=== PATIENT | male | born 1940 | race Caucasian/White ===

== ENCOUNTER 2019-06-26 10:33 | Inpatient (IN) | payer OTHER ==
[~2019-06-26] VITALS: Ht 175.3 cm; Wt 67.8 kg
[2019-06-26 11:09] LABS: BASOPHILS # (AUTO) 0.1 (0.0-0.1); BASOPHILS % 0.6 % (0.0-1.0); EOSINOPHILS # (AUTO) 0.1 (0.0-0.4); EOSINOPHILS % 1.2 % (0.0-6.0); HEMATOCRIT 30.6 % (38.2-49.6); HEMOGLOBIN 9.5 g/dL (14.0-18.0); LYMPHOCYTES # (AUTO) 0.7 (1.0-3.2); LYMPHOCYTES % 6.1 % (18.0-39.1); MEAN CORPUSCULAR HEMOGLOBIN 26.3 pg (28-32); MEAN CORPUSCULAR VOLUME 84.8 fL (81-99); MONOCYTES # (AUTO) 0.8 (0.2-0.8); MONOCYTES % 6.9 % (4.4-11.3); NEUTROPHILS # (AUTO) 9.9 (2.1-6.9); NEUTROPHILS % 84.5 % (38.7-80.0); PLATELET COUNT 296 x10e3/uL (140-360); RED BLOOD COUNT 3.61 x10e6/uL (4.3-5.7); RED CELL DISTRIBUTION WIDTH 15.5 % (11.7-14.4)
[2019-06-26 11:29] LABS: INR 1.36; PROTHROMBIN TIME 17.7 seconds (11.9-14.5)
[2019-06-26 11:30] LABS: PARTIAL THROMBOPLASTIN TIME 44.5 seconds (23.8-35.5)
[2019-06-26 11:37] LABS: ALBUMIN 3.6 g/dL (3.5-5.0); ANION GAP 17.2 mmol/L (8-16); CALCIUM 10.4 mg/dL (8.4-10.2); CREATININE, SERUM 1.53 mg/dL (0.72-1.25); MAGNESIUM 1.6 MG/DL (1.3-2.1); POTASSIUM 5.2 mmol/L (3.5-5.1)
[2019-06-26] MEDS ORDERED: DEXTROSE 50% SYRINGE 50 ML IV STA (11:49)
[2019-06-26] MEDS ORDERED: DEXTROSE 50% SYRINGE 50 ML IV ONE (11:55)
[2019-06-26] MEDS ORDERED: DEXTROSE 5% 1,000 ML IV ONE (12:00)
--- NOTE | 2019-06-26 12:05 | Diagnostic Imaging Report ---
Examination: Single AP view of the chest. COMPARISON: None. INDICATION: Pain, trauma DISCUSSION: Lines/tubes: AICD. Sternotomy wires. Lungs: Enlargement of the central vasculature. No edema. Scattered calcified granuloma. Pleura: No pleural effusion or pneumothorax. Heart and mediastinum: Cardiomegaly. Bones and soft tissues: No acute bony abnormalities. IMPRESSION: 1. Cardiomegaly without decompensation Signed by: Dr. Obdulio Bowens M.D. on 06/26/2019 12:02 PM
--- NOTE | 2019-06-26 12:07 | Diagnostic Imaging Report ---
Exam: Right shoulder 2 views History: Pain Comparison: None. Findings: Possible nondisplaced fracture of the distal clavicle. Mild acromioclavicular arthrosis. Glenohumeral joint intact. No abnormal soft tissue calcification or soft tissue defect. Impression: Possible nondisplaced fracture of the distal clavicle Signed by: Dr. Obdulio Bowens M.D. on 06/26/2019 12:04 PM
--- NOTE | 2019-06-26 12:08 | Diagnostic Imaging Report ---
Exam: AP pelvis History: Pain Comparison: None. Findings: No fracture or malalignment. Degenerative arthrosis of the hip joints No abnormal soft tissue calcification or soft tissue defect. Impression: No displaced fracture Signed by: Dr. Obdulio Bowens M.D. on 06/26/2019 12:05 PM
--- NOTE | 2019-06-26 12:40 | Diagnostic Imaging Report ---
History: Fall, pain Comparison studies:None Technique: Axial images were obtained from the brain and cervical spine. Coronal and sagittal images reconstructed from the axial data. Intravenous contrast: None Dose modulation, iterative reconstruction, and/or weight based adjustment of the mA/kV was utilized to reduce the radiation dose to as low as reasonably achievable. Findings: Head CT: Scalp/skull: No abnormalities. Extra-axial spaces: No masses. No fluid collections. Brain sulci: Mildly prominent. Ventricles: Moderate compensatory dilatation more significant at the temporal horns which can be seen in Alzheimer's. No hydrocephalus. Parenchyma: Subtle hypodensities in the supratentorial white matter are small vessel ischemic changes. No masses, hemorrhage, acute or chronic cortical vascular insults. Sellar/suprasellar region: No abnormalities. Craniocervical junction: Patent foramen magnum. No Chiari one malformation. Incidental findings: Atherosclerotic calcifications in the carotid siphons and vertebral arteries . Cervical spine CT: Fractures: None. Soft tissues: No gross acute abnormalities. Atherosclerotic calcifications of the carotid bulbs. Atlantoaxial articulation: Degenerative changes without acute abnormality. Alignment: Normal lordosis. No scoliosis. Cervicomedullary junction: No abnormalities. Patent foramen magnum. Vertebrae: No infection or neoplasm. Degenerative changes: Degenerative foraminal narrowing, severe left at C5-6 and severe right at C6-7. Incidental findings: Partially visualized fracture of the right medial clavicle/sternoclavicular joint. Impression: Impression: 1. No acute abnormalities. 2. Mild generalized volume loss. 3. Mild supratentorial white matter small vessel ischemic 4. changes. Cervical spine CT: 1. No acute cervical spine abnormalities. 2. Cannot exclude ligament, spinal cord and or vascular abnormalities on the basis of this examination. 3. Partially visualized acute fracture of the right medial clavicle/sternoclavicular joint. Signed by: DR Salvador Forbes M.D. on 06/26/2019 12:38 PM
[2019-06-26] MEDS ORDERED: DEXTROSE 50% SYRINGE 50 ML IV PRN (12:45)
[2019-06-26] MEDS ORDERED: ONDANSETRON HCL INJ 2MG/ML 2ML 2 MG/ML VIAL IV PRN (12:45)
--- OUTSIDE RECORDS SUMMARY | 2019-06-26 13:38 | XMS REPORT ---
Author Author [facility] Address Unknown Phone Unavailable Care Team Providers Care Patient'S Librarian Name Role Phone Pardeep MIMS Unavailable Unavailable Problems This patient has no known problems. Allergies, Adverse Reactions, Alerts This patient has no known allergies or adverse reactions. Medications This patient has no known medications. Results Test Description Test Time Test Comments Text Results Atomic Results Result Comments CT CERVICAL SPINE WO 2019-06-26 12:16:00 [place] [address] Patient Name: JAYLON VALDIVIA MR #: [id number] : 1940 Age/Sex: 79/M Req #: [id number] Adm Physician: Ordered by: JAN MIMS MD Report #: [id number] Location: ER Room/Bed: Procedure: [id number] CT/CT CERVICAL SPINE WO Exam Date: 06/26/19 Exam Time: 1131 REPORT STATUS: Signed History: Fall, pain Comparison studies:None Tech nique: Axial images were obtained from the brain and cervical spine. Coronal and sagittal images reconstructed from the axial data. Intravenous contrast: None Dose modulation, iterative reconstruction, and/or weight based adjustment of the mA/kV was utilized to reduce the radiation dose to as low as reasonably achievable. Findings: Head CT: Scalp/skull: No abnormalities . Extra-axial spaces: No masses. No fluid collections. Brain sulci: Mildly prominent. Ventricles: Moderate compensatory dilatation more significant at the temporal horns which can be seen in Alzheimer's. No hydrocephalus. Parenchyma: Subtle hypodensities in the supratentorial white matter are small vessel ischemic changes. No masses, hemorrhage, acute or chronic cortical vascular insults. Sellar/suprasellar region: No abnormalities. Craniocervical junction: Patent foramen magnum. No Chiari one malformation. Incidental findings: Atherosclerotic calcifications in the carotid siphons and vertebral arteries . Cervical spine CT: Fractures: None. Soft tissues: No gross acute abnormalities. Atherosclerotic calcifications of the carotid bulbs. Atlantoaxial articulation: Degenerative changes without acute abnormality. Alignment: Normal lordosis. No scoliosis. Cervicomedullary junction: No abnormalities. Patent foramen magnum. Vertebrae: No infection or neoplasm. Degenerative changes: Degenerative foraminal narrowing, severe left at C5-6 and severe right at C6-7. Incidental findings: Partially visualized fracture of the right medial clavicle/sternoclavicular joint. Impression: Impression: 1. No acute abnormalities. 2. Mild generalized volume loss. 3. Mild supratentorial white matter small vessel ischemic 4. changes. Cervical spine CT: 1. No acute cervical spine abnormalities. 2. Cannot exclude ligament, spinal cord and or vascular abnormalities on the basis of this exam ination. 3. Partially visualized acute fracture of the right medial clavicle/sternoclavicular joint. Signed by: DR Salvador Forbes M.D. on 06/26/2019 12:38 PM Dictated By: SALVADOR GRISSOM MD 1238 Transcribed By: ELLIS on 06/26/19 1238 COPY TO: JAN MIMS MD CT BRAIN WO 2019-06-26 12:16:00 [place] [address] Patient Name: JAYLON VALDIVIA MR #: [id number] : 1940 Age/Sex: 79/M Req #: [id number] Adm Physician: Ordered by: JAN MIMS MD Report #: [id number] Location: ER Room/Bed: Procedure: [id number] CT/CT BRAIN WO Exam Date: 06/26/19 Exam Time: 1131 REPORT STATUS: Signed History: Fall, pain Comparison studies:None Technique: Axial images were obtained from the brain and cervical spine. Coronal and sagittal images reconstructed from the axial data. Intravenous contrast: None Dose modulation, iterative reconstruction, and/or weight based adjustment of the mA/kV was utilized to reduce the radiation dose to as low as reasonably achievable. Findings: Head CT: Scalp/skull: No abnormalities. Extra-axial spaces: No masses. No fluid collections. Brain sulci: Mildly prominent. Ventricles: Moderate compensatory dilatation more significant at the temporal horns which can be seen in Alzheimer's. No hydrocephalus. Parenchyma: Subtle hypodensities in the supratentorial white matter are small vessel ischemic changes. No masses, hemorrhage, acute or chronic cortical vascular insults. Sellar/suprasellar region: No abnormalities. Craniocervical junction: Patent foramen magnum. No Chiari one malformation. Incidental findings: Atherosclerotic calcifications in the carotid siphons and vertebral arteries . Cervical spine CT: Fractures: None. Soft tissues: No gross acute abnormalities. Atherosclerotic calcifications of the carotid bulbs. Atlantoaxial articulation: Degenerative changes without acute abnormality. Alignment: Normal lordosis. No scoliosis. Cervicomedullary junction: No abnormalities. Patent foramen magnum. Vertebrae: No infection or neoplasm. Degenerative changes: Degenerative foraminal narrowing, severe left at C5-6 and severe right at C6-7. Incidental findings: Partially visualized fracture of the right medial clavicle/sternoclavicular joint. Impression: Impression: 1. No acute abnormalities. 2. Mild generalized volume loss. 3. Mild supratentorial white matter small vessel ischemic 4. changes. Cervical spine CT: 1. No acute cervical spine abnormalities. 2. Cannot exclude ligament, spinal cord and or vascular abnormalities on the basis of this examination. 3. Partially visualized acute fracture of the right medial clavicle/sternoclavicular joint. Signed by: DR Salvador Forbes M.D. on 06/26/2019 12:38 PM Dictated By: SALVADOR GRISSOM MD 1238 Transcribed By: ELLIS on 06/26/19 1238 COPY TO: JAN MIMS MD CHEST SINGLE (PORTABLE) 2019-06-26 12:01:00 [place] [address] Patient Name: JAYLON VALDIVIA MR #: [id number] : 1940 Age/Sex: 79/M Req #: [id number] Adm Physician: Ordered by: JAN MIMS MD Report #: [id number] Location: ER Room/Bed: Procedure: [id number] DX/CHEST SINGLE (PORTABLE) Exam Date: 06/26/19 Exam Time: 1145 REPORT STATUS: Signed Examination: Single AP view of the chest. EDITH RISON: None. INDICATION: Pain, trauma DISCUSSION: Lines/tubes: AICD. Sternotomy wires. Lungs: Enlargement of the central vasculature. No edema. Scattered calcified granuloma. Pleura: No pleural effusion or pneumothorax. Heart and mediastinum: Cardiomegaly. Bones and soft tissues: No acute bony abnormalities. IMPRESSION: 1. Cardiomegaly without decompensation Signed by: Dr. Roseline De Paz M.D. on 06/26/2019 12:02 PM Dictated By: ROSELINE DE PAZ MD 1202 Transcribed By: ELLIS on 06/26/19 1202 COPY TO: JAN MIMS MD SHOULDER RIGHT COMPLETE 2019-06-26 12:00:00 [place] [address] Patient Name: JAYLON VALDIVIA MR #: [id number] : 1940 Age/Sex: 79/M Req #: [id number] Adm Physician: Ordered by: JAN MIMS MD Report #: [id number] Location: ER Room/Bed: Procedure: [id number] DX/SHOULDER RIGHT COMPLETE Exam Date: 06/26/19 Exam Time: 1145 REPORT STATUS: Signed Exam: Right shoulder 2 views History: Pain Comparison: None. Findings: Possible nondisplaced fracture of the distal clavicle. Mild acromioclavicular arthrosis. Glenohumeral joint intact. No abnormal soft tissue calcification or soft tissue defect. Impression: Possible nondisplaced fracture of the distal clavicle Signed by: Dr. Roseline De Paz M.D. on 06/26/2019 12:04 PM Dictated By: ROSELINE DE PAZ MD 120 Transcribed By: ELLIS on 06/26/19 1204 COPY TO: JAN MIMS MD PELVIS AP 1-2 VIEWS 2019-06-26 12:00:00 [place] [address] Patient Name: JAYLON VALDIVIA MR #: [id number] : 1940 Age/Sex: 79/M Req #: [id number] Adm Physician: Ordered by: JAN MIMS MD Report #: [id number] Location: Room/Bed: Procedure: [id number] DX/PELVIS AP 1-2 VIEWS Exam Date: 06/26/19 Exam Time: 1145 REPORT STATUS: Signed Exam: AP pelvis History: Pain Compariso n: None. Findings: No fracture or malalignment. Degenerative arthrosis of the hip joints No abnormal soft tissue calcification or soft tissue defect. Impression: No displaced fracture Signed by: Dr. Roseline De Paz M.D. on 06/26/2019 12:05 PM Dictated By: ROSELINE DE PAZ MD 1205 Transcribed By: ELLIS on 06/26/19 1205 COPY TO: JAN MIMS MD
--- NOTE | 2019-06-26 13:56 | NUR ---
blood sugar 161
[2019-06-26 14:05] LABS: CLARITY,URINE CLEAR (CLEAR); COLOR,URINE YELLOW (YELLOW); KETONES,URINE NEGATIVE (NEGATIVE); LEUKOCYTE ESTERASE ,URINE NEGATIVE (NEGATIVE); NITRITE,URINE NEGATIVE (NEGATIVE); PROTEIN,URINE DIPSTICK NEGATIVE (NEGATIVE); URINE UROBILINOGEN 0.2 mg/dL (0.2 - 1)
--- NOTE | 2019-06-26 14:05 | NUR ---
attempted to call report was told that nurse would call back
[2019-06-26 14:06] LABS: BILIRUBIN,URINE NEGATIVE (NEGATIVE)
[2019-06-26 14:26] LABS: BACTERIA,URINE FEW /HPF; EPITHELIAL CELLS,URINE FEW /LPF; RBC,URINE 0-5 /HPF (0-5); WBC,URINE (MAN) 0-5 /HPF (0-5)
--- NOTE | 2019-06-26 14:30 | NUR ---
shoulder sling applied to right shoulder
[2019-06-26] MEDS: OCTREOTIDE ACETATE 0.05 MG/ML AMP SQ SCH ×2 (14:43→18:07)
[2019-06-26 16:58] VITALS: BP 121/65
[2019-06-26 17:35] VITALS: BP 121/65
--- NOTE | 2019-06-26 19:00 | NUR ---
Received patient from day nurse, patient is alert and oriented x4. safety and fall precautions maintained as per hospital protocol: bed in lowest position and locked, needed items beside bed, call cano close to patient and patient instructed to use it to call nurses for any assistance needed, patient verbalized understanding. patient is currently stable will continue to monitor.
[2019-06-26 20:00] VITALS: BP 121/87
[2019-06-26] MEDS ORDERED: GLIMEPIRIDE2 MG PO (20:42)
[2019-06-26] MEDS ORDERED: METOPROLOL TART25 MG PO (20:42)
[2019-06-26] MEDS ORDERED: METFORMIN HCL500 MG PO (20:42)
[2019-06-26] MEDS ORDERED: LIPITOR20 MG (20:42)
[2019-06-26] MEDS ORDERED: LASIX20 MG PO (20:42)
[2019-06-26] MEDS ORDERED: ELIQUIS2.5 MG PO (20:42)
[2019-06-26] MEDS ORDERED: BENZONATATE100 MG PO (20:42)
[2019-06-26] MEDS ORDERED: LOSARTAN POTASS25 MG PO (20:42)
[2019-06-26] MEDS ORDERED: FLOMAX0.4 MG PO (20:42)
[2019-06-26] MEDS ORDERED: DIGOXIN125 MCG PO (20:42)
--- NOTE | 2019-06-26 20:46 | NUR ---
Patient at bedside, patient instructed to call for help at all times because of his risk for fall and hx of falls, urinal offered to patient at this time and he urinated. patient made informed again not to get up with help, fall precautions maintained.
[2019-06-26] MEDS ORDERED: FAMOTIDINE 20 MG/2 ML VIAL IV SCH (21:00)
[2019-06-26 21:38] VITALS: BP 121/65
[2019-06-27] VITALS (8 sets, daily range): BP systolic 109–127; BP diastolic 75–87
[2019-06-27] MEDS: OCTREOTIDE ACETATE 0.05 MG/ML AMP SQ SCH ×2 (03:08→08:44)
[2019-06-27 07:04] LABS: BASOPHILS # (AUTO) 0.1 (0.0-0.1); BASOPHILS % 0.7 % (0.0-1.0); EOSINOPHILS # (AUTO) 0.3 (0.0-0.4); EOSINOPHILS % 2.7 % (0.0-6.0); HEMATOCRIT 29.3 % (38.2-49.6); HEMOGLOBIN 9.2 g/dL (14.0-18.0); LYMPHOCYTES % 10.8 % (18.0-39.1); MEAN CORPUSCULAR HEMOGLOBIN 26.5 pg (28-32); MEAN CORPUSCULAR HGB CONC 31.4 g/dL (31-35); MEAN CORPUSCULAR VOLUME 84.4 fL (81-99); MONOCYTES # (AUTO) 0.9 (0.2-0.8); MONOCYTES % 10.1 % (4.4-11.3); NEUTROPHILS # (AUTO) 6.9 (2.1-6.9); NEUTROPHILS % 75.2 % (38.7-80.0); PLATELET COUNT 298 x10e3/uL (140-360); RED BLOOD COUNT 3.47 x10e6/uL (4.3-5.7); RED CELL DISTRIBUTION WIDTH 15.5 % (11.7-14.4)
[2019-06-27 07:27] LABS: ALBUMIN 3.2 g/dL (3.5-5.0); ANION GAP 15.9 mmol/L (8-16); CALCIUM 9.6 mg/dL (8.4-10.2); CHOL/HDL RATIO 3.9 (3.9-4.7); CREATININE, SERUM 1.55 mg/dL (0.72-1.25); POTASSIUM 4.9 mmol/L (3.5-5.1)
[2019-06-27 08:05] LABS: CREATINE KINASE MB 0.8 ng/mL (0-5.0)
[2019-06-27] MEDS ORDERED: BENZONATATE 100 MG CAP PO PRN (08:15)
[2019-06-27] MEDS ORDERED: DEXTROSE 50% SYRINGE 50 ML IV PRN (08:30)
[2019-06-27] MEDS: METOPROLOL TARTRATE 25 MG TAB PO SCH ×2 (08:37→17:36)
[2019-06-27] MEDS: TAMSULOSIN HCL 0.4 MG CAP PO SCH (08:37)
[2019-06-27] MEDS: APIXAB 2.5 MG TABLET PO SCH (08:37)
--- NOTE | 2019-06-27 08:55 | NUR ---
Met with patient and his , Francine ([phone]) and discussed dc plan. They agree with home health SN and PT, and have never had HH before. Choice letter given, and they chose [facility]. Copy to pt and original placed in chart. Pt lives in [place], so info sent to [place] office. Explained to to contact [facility] tomorrow afternoon, if she has not yet heard from them. Verified information of demographic sheet, and pt does plan to return to him upon upon discharge. Pt is discharging home today. [facility] ([place]) OFFICE: [phone] FAX: [phone]
[2019-06-27] MEDS ORDERED: ASPIRIN 81 MG ENTERIC COATED PO SCH (09:00)
--- NOTE | 2019-06-27 10:38 | History and Physical ---
CHIEF COMPLAINT: Low blood sugar secondary to taking sulfonylurea and status post syncopal episode with fall, right clavicular fractures. HISTORY OF PRESENT ILLNESS: The patient is an 79-year-old male with extensive coronary artery disease. The patient has previous myocardial infarction back in 1981 where his left ventricle infarction with necrosis, status post left ventricular resection per patient and then subsequently since then the patient has congestive heart failure, where he subsequently underwent ICD placement. The patient also has atrial fibrillation. He is on anticoagulant therapy. Currently, he is on digoxin 0.125 mg daily and on admission the patient digoxin level was elevated at 2.04. He also has chronic kidney disease. He was taking Amaryl 2 mg twice a day. Apparently, he was supposed to take it once a day. The patient came in with blood sugar in the 50. The patient did receive multiple D50 infusion and also IV fluids. The patient is otherwise stable now. On his fall, the patient suffered clavicle fractures. The clavicle fracture is noted on the right medial clavicle sternal clavicular joint area. The patient is still able to use his right hand. He is having decreased range of motion of the right shoulder and he is using a sling at this time. The patient is otherwise stable. He is coherent. He did not have any deficit. PAST MEDICAL HISTORY: Coronary artery disease with previous left ventricular resection. Atrial fibrillation on anticoagulant therapy. Chronic kidney disease. Diabetes type 2. Hypertension, dyslipidemia, BPH. PAST SURGICAL HISTORY: Left ventricular resection. Coronary stent. ICD to the left chest. SOCIAL HISTORY: The patient does not smoke or use alcohol. No recreational drug use. ALLERGIES: PENICILLIN. HOME MEDICATIONS: The patient is on Eliquis, Lipitor, Tessalon Perles, digoxin, furosemide, Amaryl, losartan, metformin, metoprolol tartrate and Flomax. PHYSICAL EXAMINATION: VITAL SIGNS: Temperature is 98, blood pressure 127/80, pulse rate 75, respirations 18. GENERAL: The patient is awake, alert, not in any distress. He is oriented. HEENT: Normocephalic and atraumatic. Anicteric. NECK: Supple grossly. PULMONARY: Diminished breath sounds. CARDIOVASCULAR: Positive systolic murmur. Positive ICD left chest. ABDOMEN: Soft. EXTREMITIES: Right shoulder sling, right arm sling. NEUROLOGIC: No focal deficit. LABORATORY DATA: Sodium is 136, potassium 5.2, chloride 101, bicarb 23, BUN 36, creatinine 1.3, glucose 50, improved now. WBC is 9.2, hemoglobin 9, hematocrit 29.3, platelets 298. INR is 1.36. IMPRESSION: 1. Hypoglycemic episodes secondary to sulfonylurea and Amaryl that the patient was taking. 2. Dehydration with chronic kidney disease. 3. Digoxin toxicity due to the above 2.04. 4. Baseline diabetes type 2 on metformin and Amaryl. 5. Coronary artery disease with stents and previous left ventricular resection now with left ICD due to congestive heart failure, which is compensated. PLAN: Insulin sliding scale coverage. We will discontinue metformin and Amaryl for now. Hold off the digoxin. Repeat lab work in the morning. Check the potassium level. Check the digoxin level as well. We will monitor the patient closely. Right arm sling. May need home health. We will continue to manage this patient for now. The patient does see his supervisor money room on a regular basis; therefore, I will not do any other workup. The patient is otherwise stable, remained on observation, should be able to go home tomorrow with some discharge planning. MD YUKI Soliz/ANN /[id number]
[2019-06-27] MEDS: INSULIN LISPRO 100 UNIT/1 ML 3ML VIAL SQ SCH ×3 (12:18→21:00)
[2019-06-27 14:53] LABS: CREATINE KINASE MB 0.7 ng/mL (0-5.0)
[2019-06-27] MEDS ORDERED: LOPERAMIDE2 MG PO (15:40)
[2019-06-27] MEDS ORDERED: BENZONATATE100 MG PO (15:40)
[2019-06-27] MEDS ORDERED: TYLENOL WITH C1 EACH PO (15:40)
[2019-06-27] MEDS ORDERED: RANITIDINE HCL150 M1 (15:40)
[2019-06-27] MEDS ORDERED: FLUOCINONIDE15 GM (15:40)
[2019-06-27] MEDS ORDERED: SPIRONOLACTONE25 MG PO (15:40)
[2019-06-27] MEDS ORDERED: MELATONIN3 MG PO (15:40)
[2019-06-27] MEDS ORDERED: LORATADINE10 MG PO (15:40)
[2019-06-27] MEDS ORDERED: FINASTERIDE5 MG PO (15:40)
--- NOTE | 2019-06-27 19:00 | NUR ---
Received patient from day nurse, patient is alert and oriented x3. patient is on room air. safety and fall precautions mainatained as per hospital protocol: bed in lowest position and locked, needed items beside bed and call cano close to patient, as per day nurse, patient alarm has being going off because he gets out of bed without calling for help, patient educated to call for help, verbalized understanding.
--- NOTE | 2019-06-27 19:10 | NUR ---
Received patient from day nurse, patient is stable at this time. patient is alert and oriented x 2. safety and fall precautions maintained as per hospital protocol: bed in lowest position and locked, needed items beside bed and patient instructed to call at all times for help.
--- NOTE | 2019-06-27 20:55 | NUR ---
Patient got out of bed, did not use the call light, patient states I want to walk around, patient educated on the possibility of fall. patient states, I do this at home, coating supervisor made aware and Dr. Plasencia made aware, stated patient can have melatonin and also place patient on 1:1, security field supervisor made aware and awaiting a sitter.
[2019-06-27] MEDS: ATORVASTATIN 40 MG TAB PO SCH (21:48)
[2019-06-27] MEDS ORDERED: TEMAZEPAM 7.5 MG CAP PO PRN (22:30)
--- NOTE | 2019-06-27 23:15 | NUR ---
Patient states wants to leave home, called and spoke to patient, as per , she wants patient to be in the hospital to receive the care he needs. RN is at bed side now.
[2019-06-27] MEDS: FAMOTIDINE 20 MG TAB PO SCH (23:44)
[2019-06-27] MEDS: BENZONATATE 100 MG CAP PO SCH (23:45)
[2019-06-28] VITALS (7 sets, daily range): BP systolic 105–127; BP diastolic 67–83
--- NOTE | 2019-06-28 05:31 | NUR ---
Consult called to Dr. Ortiz office, spoke to [place].
[2019-06-28 06:30] LABS: BASOPHILS # (AUTO) 0.1 (0.0-0.1); BASOPHILS % 0.9 % (0.0-1.0); EOSINOPHILS # (AUTO) 0.3 (0.0-0.4); EOSINOPHILS % 2.5 % (0.0-6.0); HEMATOCRIT 28.3 % (38.2-49.6); HEMOGLOBIN 8.9 g/dL (14.0-18.0); LYMPHOCYTES # (AUTO) 2.3 (1.0-3.2); LYMPHOCYTES % 19.4 % (18.0-39.1); MEAN CORPUSCULAR HEMOGLOBIN 26.4 pg (28-32); MEAN CORPUSCULAR HGB CONC 31.4 g/dL (31-35); MONOCYTES # (AUTO) 1.3 (0.2-0.8); MONOCYTES % 11.2 % (4.4-11.3); NEUTROPHILS # (AUTO) 7.7 (2.1-6.9); NEUTROPHILS % 65.2 % (38.7-80.0); PLATELET COUNT 303 x10e3/uL (140-360); RED BLOOD COUNT 3.37 x10e6/uL (4.3-5.7); RED CELL DISTRIBUTION WIDTH 15.2 % (11.7-14.4)
[2019-06-28 06:45] LABS: ANION GAP 13.7 mmol/L (8-16); CALCIUM 9.2 mg/dL (8.4-10.2); CREATININE, SERUM 1.3 mg/dL (0.72-1.25); POTASSIUM 4.7 mmol/L (3.5-5.1)
[2019-06-28 06:52] LABS: DIGOXIN 0.84 ng/mL (0.8-2.0)
[2019-06-28 07:00] LABS: % IRON SATURATION 7 % (15-50); IRON 20 ug/dL (65-175); TOTAL IRON BINDING CAPACITY 305 ug/dL (261-478); TRANSFERRIN 218 mg/dL (174-364)
--- NOTE | 2019-06-28 07:00 | NUR ---
bedside shift report received, pt in stable condition. l ac 20g no ss of infiltration noted, deneis pain at this time, updated on poc vocied understanding, sitter at bedside, bedalarm in place, call light in reach will continue to monitor
--- NOTE | 2019-06-28 07:24 | NUR ---
Patient endorsed to next shift for continuity of care.
[2019-06-28] MEDS: INSULIN LISPRO 100 UNIT/1 ML 3ML VIAL SQ SCH ×4 (07:30→22:38)
[2019-06-28] MEDS: FAMOTIDINE 20 MG TAB PO SCH ×2 (08:39→17:00)
[2019-06-28] MEDS: TAMSULOSIN HCL 0.4 MG CAP PO SCH (08:53)
[2019-06-28] MEDS: LORATADINE 10 MG TAB PO SCH (08:53)
[2019-06-28] MEDS: APIXAB 2.5 MG TABLET PO SCH (08:53)
[2019-06-28] MEDS: METOPROLOL TARTRATE 25 MG TAB PO SCH ×2 (08:54→17:20)
[2019-06-28] MEDS: FINASTERIDE 5 MG TAB PO SCH (08:55)
[2019-06-28] MEDS: BENZONATATE 100 MG CAP PO SCH ×2 (08:56→17:20)
[2019-06-28] MEDS ORDERED: MAGNESIUM HYDROXIDE 30 ML UDC PO PRN (09:00)
[2019-06-28] MEDS ORDERED: BISACODYL 5 MG TAB EC PO PRN (09:00)
[2019-06-28] MEDS ORDERED: BISACODYL 10 MG SUPP PR PRN (09:00)
[2019-06-28] MEDS ORDERED: ONDANSETRON HCL 4 MG ORAL DISINTEGRATING TAB PO PRN (09:30)
[2019-06-28] MEDS: IRON-VITAMIN-MINERAL CAPSULE PO SCH ×2 (10:10→17:57)
[2019-06-28] MEDS: SENNOSIDES 8.6 MG TAB PO SCH ×2 (10:10→17:20)
--- NOTE | 2019-06-28 10:15 | NUR ---
CHIDI WITH [facility] CALLED AND THEY WILL NOT BE ABLE TO ACCEPT PT, WILL NEED TO SET UP ALTERNATE HOME HEALTH, NOTIFIED CM.
--- NOTE | 2019-06-28 12:46 | NUR ---
[facility], FILED CHOICE IN CHART, FAXED CLINICALS TO [phone], COMPLETED RTF AND PASRR FILED I CHART AND PACKET FOR COMPLETION OF TRANSFER.
[2019-06-28] MEDS ORDERED: TEMAZEPAM 7.5 MG CAP PO PRN (13:30)
[2019-06-28] MEDS ORDERED: RISPERIDONE 0.5 MG TAB PO PRN (13:30)
[2019-06-28] MEDS ORDERED: HALOPERIDOL LACTATE 5 MG/ML VIAL IM PRN (13:30)
--- NOTE | 2019-06-28 16:11 | NUR ---
spoke with dr barajas re: EF of less than 20% no new orders at this time.
--- NOTE | 2019-06-28 16:31 | NUR ---
[facility] IS NOT IN NETWORK, SPOKE WITH FAMILY AND GAVE FULL LIST OF IN NETWORK FACILITIES CHOICE CHANGED AND INITIALED FOR [facility] OF [facility], FAXED CLINCALS TO FACILITY. UPDATED PASRR AND RTF
[2019-06-28] MEDS: ACETAMINOPHEN/CODEINE 300MG - 30MG TAB PO PRN (17:30)
--- NOTE | 2019-06-28 19:20 | NUR ---
RECEIVED BEDSIDE SHIFT REPORT FROM PREVIOUS NURSE. CALL LIGHT WITHIN REACH. PATIENT IN BED.
--- NOTE | 2019-06-28 20:05 | Consultation ---
DATE OF CONSULTATION: 06/28/2019 Psychiatric Consultation The patient evaluated and events noted. REASON FOR CONSULTATION: To evaluate the patient's psychosis and confusion. HISTORY OF PRESENT ILLNESS: The patient is an 79-year-old male, admitted to the hospital for hyperglycemia. Psych consult is for confusion, psychosis. As per medical record, the patient has history of coronary artery disease, atrial fibrillation, chronic kidney disease, diabetes, hypertension, dyslipidemia, and BPH. Upon evaluation today, the patient is found to be sitting in his room. His is in the room as well as the daughter. The patient is oriented to self, place, and situation. He claims to hospital due to a fall and broke his clavicle. The patient denies any anxiety or depression, but wants to go home. He denies any hopelessness or helplessness. He denies any suicidal or homicidal ideation. He denies any hallucination. However, the patient reports he has not been eating or sleeping well. No paranoia elicited at this time. Collaborative report from the , who admits that patient has not been eating well. He has lost about 40 pounds the end of last beginning of this year. PAST PSYCHIATRIC HISTORY: The patient denies past psychiatric history. He denies past suicide attempts. He denies any drug use, but claims he drinks alcohol very little. FAMILY HISTORY: Denies. SOCIAL HISTORY: The patient states he lives with his . MENTAL STATUS EXAM: The patient is elderly male. He has been oriented to situation. His mood is fair. Denies suicidal or homicidal ideation. Denies any hallucination. Thought process is concrete. No delusion elicited. Insight and judgment are fair. Memory appears to be grossly intact. CURRENT MEDICATION: 1. Insulin. 2. Senokot. 3. Hemocyte Plus. 4. Benzonatate. 5. Proscar. 6. Lopressor. 7. Flomax. 8. Eliquis. 9. Pepcid. 10. Restoril 15 mg p.o. at bedtime p.r.n. 11. Atorvastatin. 12. Loratadine. 13. Zofran. 14. Digoxin. 15. Bisacodyl. 16. Magnesium hydroxide. 17. Melatonin 5 mg p.o. at bedtime. 18. Tylenol No. 3. 19. Dextrose. CURRENT LABS: WBC 11.76, RBC 3.37, hemoglobin 8.9, hematocrit 28.3, and platelets 303. Sodium 133, potassium 4.7, chloride 103, CO2 of 21, BUN 36, creatinine 1.3, AST 16, and ALT 18. ASSESSMENT: 1. Adjustment disorder with mixed mood. 2. Rule out psychosis. PLAN: 1. Add Remeron 7.5 mg p.o. at bedtime. 2. Add Risperdal 0.5 mg p.o. at bedtime p.r.n. 3. Add Haldol 1 mg IM q.6 hours p.r.n. 4. Continue with temazepam p.r.n. at bedtime. 5. Continue melatonin. 6. Monitor for mood, sodium level, and psychosis. Thank you for this consultation. We will follow the patient with you during his hospitalization. Dictated by Baylee Shaikh PA-C Shikha Rasmussen MD QTV/MODL /[id number]
[2019-06-28] MEDS: MIRTAZAPINE 15 MG TAB PO SCH (22:42)
[2019-06-28] MEDS: ATORVASTATIN 40 MG TAB PO SCH (22:42)
[2019-06-28] MEDS: MELATONIN 5 MG TABLET PO SCH (22:42)
[2019-06-29] VITALS (8 sets, daily range): BP systolic 106–126; BP diastolic 73–81
[2019-06-29] MEDS: ACETAMINOPHEN/CODEINE 300MG - 30MG TAB PO PRN (03:03)
[2019-06-29 06:05] LABS: BASOPHILS # (AUTO) 0.1 (0.0-0.1); BASOPHILS % 0.8 % (0.0-1.0); EOSINOPHILS # (AUTO) 0.1 (0.0-0.4); HEMATOCRIT 27.8 % (38.2-49.6); HEMOGLOBIN 9.1 g/dL (14.0-18.0); LYMPHOCYTES # (AUTO) 1.9 (1.0-3.2); LYMPHOCYTES % 14.1 % (18.0-39.1); MEAN CORPUSCULAR HEMOGLOBIN 26.9 pg (28-32); MEAN CORPUSCULAR HGB CONC 32.7 g/dL (31-35); MEAN CORPUSCULAR VOLUME 82.2 fL (81-99); MONOCYTES # (AUTO) 1.4 (0.2-0.8); MONOCYTES % 10.7 % (4.4-11.3); NEUTROPHILS # (AUTO) 9.6 (2.1-6.9); NEUTROPHILS % 72.6 % (38.7-80.0); PLATELET COUNT 302 x10e3/uL (140-360); RED BLOOD COUNT 3.38 x10e6/uL (4.3-5.7); RED CELL DISTRIBUTION WIDTH 15.2 % (11.7-14.4)
[2019-06-29 06:28] LABS: ANION GAP 16.4 mmol/L (8-16); CALCIUM 9.6 mg/dL (8.4-10.2); CREATININE, SERUM 1.42 mg/dL (0.72-1.25); POTASSIUM 4.4 mmol/L (3.5-5.1)
--- NOTE | 2019-06-29 07:00 | NUR ---
BEDSIDE SHIFT REPORT RECEIVED FROM ARAVIND VILLATORO. PT DENIES NEEDS AT THIS TIME.
--- NOTE | 2019-06-29 07:23 | NUR ---
GAVE BEDSIDE SHIFT REPORT TO ONCOMING NURSE. CALL LIGHT WITHIN REACH. PATIENT IN BED. PATIENT IS A&OX2.
[2019-06-29] MEDS: INSULIN LISPRO 100 UNIT/1 ML 3ML VIAL SQ SCH ×4 (07:30→21:00)
[2019-06-29] MEDS: FINASTERIDE 5 MG TAB PO SCH (08:57)
[2019-06-29] MEDS: SENNOSIDES 8.6 MG TAB PO SCH ×2 (08:57→17:21)
[2019-06-29] MEDS: METOPROLOL TARTRATE 25 MG TAB PO SCH ×2 (08:57→17:21)
[2019-06-29] MEDS: IRON-VITAMIN-MINERAL CAPSULE PO SCH ×2 (08:57→17:21)
[2019-06-29] MEDS: DIGOXIN 0.125 MG TAB PO SCH (08:57)
[2019-06-29] MEDS: APIXAB 2.5 MG TABLET PO SCH (08:57)
[2019-06-29] MEDS: TAMSULOSIN HCL 0.4 MG CAP PO SCH (08:57)
[2019-06-29] MEDS: FAMOTIDINE 20 MG TAB PO SCH ×2 (08:57→17:20)
[2019-06-29] MEDS: LORATADINE 10 MG TAB PO SCH (08:57)
[2019-06-29] MEDS: BENZONATATE 100 MG CAP PO SCH ×2 (08:58→17:21)
[2019-06-29] MEDS ORDERED: DIATRIZOATE MEGL/DIATRIZOA SOD 30 ML BTL PO ONE (10:16)
--- NOTE | 2019-06-29 12:24 | Consultation ---
DATE OF CONSULTATION: 06/28/2019 Cardiology Consultation Note Thank you so much for asking me to see this nice man in consultation. Mr. Mariano is a very complex and very elderly, 79-year-old man, who presented to the [facility] on the with a complaint of falling down at home. History of Present Illness is obtained from the patient and from his at bedside, who suggests that he gotten up at night and fell down and fractured his shoulder. HISTORY OF PRESENT ILLNESS: The patient takes oral hypoglycemics. He tells me he has never been recommended to eat a bedtime snack and presenting fingerstick glucoses are low. PAST MEDICAL HISTORY: Long and complex. 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 He did not do coronary artery bypasses. More recently, the patient has had coronary stenting. He has lived in the [place] area since 2000. He has chronic atrial fibrillation and mild renal insufficiency. CURRENT MEDICATIONS: Include apixaban 2.5 mg, atorvastatin 80 mg daily, Haldol 1 mg, tamsulosin 0.4 mg daily, melatonin at bedtime, Restoril at bedtime, metoprolol 25 mg twice a day, digoxin 0.125 mg every other day, and Amaryl 2 mg twice a day. PAST SURGICAL HISTORY: Includes defibrillator placement and left ventricular aneurysmectomy as above and coronary stenting. PHYSICAL EXAMINATION: GENERAL: At this time shows an elderly white man, who is awake. Right arm in sling. Multiple purpura on both arms. HEAD, EYES, EARS, NOSE, AND THROAT: Shows amblyopia. NECK: No jugular venous distention. THORAX: There is healed midline sternotomy and left subclavian defibrillator site. Heart sounds S1 and S2 are equal. There is 1/6 systolic murmur. PULMONARY: Lung law are clear. ABDOMEN: Protuberant. Normal bowel sounds. EXTREMITIES: No cyanosis, clubbing, or edema. LABORATORY DATA: Presenting laboratory showed a fingerstick blood sugar of 50. His digoxin level initially 2.0. BNP 207. Chest x-ray showing a defibrillator and sternotomy wires. Additionally, echocardiogram here shows ejection fraction less than 20%. No pericardial effusion. Calculated right ventricular systolic pressure is 52 mmHg. Interrogation of defibrillator shows appropriate device function, chronic atrial fibrillation, no ventricular arrhythmias, and estimated battery life of 15 months. ASSESSMENT: 1. Hypoglycemia due to oral hypoglycemics. 2. Clavicular fracture. 3. Type 2 adult onset diabetes. 4. Defibrillator function intact. 5. Previous ventricular aneurysmectomy. 6. Chronic atrial fibrillation. PLAN: We will discuss anticoagulation with the patient and family, and continue his home medications. Prognosis is guarded. Thank you for asking me to see him in consultation. MD STEPHANY Suggs/ANN /[id number]
[2019-06-29] MEDS ORDERED: HALOPERIDOL LACTATE 5 MG/ML VIAL IM PRN (12:45)
--- NOTE | 2019-06-29 14:00 | Progress Note ---
DATE: 06/29/2019 Psychiatric Progress Note SUBJECTIVE: The patient evaluated and events noted. The patient is in the room with the . He is alert, awake, and oriented to place and situation. He appears to be eating, but still having poor appetite. He is not combative or agitated; however, he did receive p.r.n. Risperdal and Haldol last night. He received Remeron last night and no side effects seen. ASSESSMENT: 1. Adjustment disorder with mixed mood. 2. Rule out psychosis. PLAN: 1. To continue Remeron 7.5 mg p.o. at bedtime. 2. Continue Risperdal 0.5 mg p.o. q.6 hours as needed. 3. Reduce Haldol 1 mg IM q.6 hours p.r.n. to 0.5 mg IM q.6 hours p.r.n. 4. Discontinue temazepam p.r.n. 5. Continue melatonin. 6. Monitor for mood. 7. Supportive therapy. Dictated by Baylee Shaikh PA-C Shikha Rasmussen MD QTV/MODL /[id number]
--- NOTE | 2019-06-29 14:10 | Diagnostic Imaging Report ---
CT of the chest, abdomen, and pelvis History: Pain, shortness of breath Comparison: None available. Technique: Multidetector CT scanning of the abdomen and pelvis was performed from the level of the thoracic inlet to the inferior pubic ramus, without IV contrast. DOSE REDUCTION: The examination was performed according to departmental dose-optimization program which includes automated exposure control, adjustment of the mA and/or kV according to patient size and/or use of iterative reconstruction technique. DISCUSSION: CHEST FINDINGS: The visualized portions of the thyroid gland are within normal limits. There is no axillary, mediastinal, or hilar lymphadenopathy. The heart is enlarged. A left subclavian AICD is in place. Nonspecific pericardial calcifications are present. Three-vessel atherosclerotic coronary calcifications are present. The thoracic aorta is of normal course and caliber. The trachea and central airways are clear. A 6 mm pulmonary nodule is identified in the left upper lobe on series 4 axial image 32. A calcified granuloma is identified in the right lower lobe. There are scattered areas of atelectasis versus scarring. Small bilateral pleural effusions are present. There is no pneumothorax. There is a nondisplaced fracture of the distal right clavicle. No other acute thoracic osseous amount is identified. ABDOMEN/PELVIS FINDINGS: No focal hepatic lesions are identified. The gallbladder is present and contains small calcified gallstones. There is no gallbladder distention or pericholecystic fluid. No intrahepatic or extrahepatic dilatation. The spleen is within normal limits. The bilateral adrenal glands are unremarkable. The pancreas is normal in attenuation. There is no pancreatic ductal dilatation or peripancreatic inflammatory stranding. The kidneys are normal in size. There is no hydroureteronephrosis bilaterally. No renal calculi are identified. The stomach, small, and large bowel are nondistended. There is no evidence of obstruction. No bowel wall thickening is appreciated. Scattered colonic diverticula are present without evidence of acute diverticulitis. There is no free intraperitoneal air or ascites. A fusiform infrarenal abdominal aortic aneurysm is present which measures 4.2 cm in maximum diameter. The urinary bladder is within normal limits. There are multilevel degenerative changes of the thoracolumbar spine. IMPRESSION: 1. Small bilateral pleural effusions. 2. Cardiomegaly. 3. Acute nondisplaced right distal clavicle fracture. 4. 6 mm left upper lobe pulmonary nodule. Follow-up CT in 6-12 months and then at 18-24 months is recommended. 5. Fusiform 4.2 cm diameter infrarenal abdominal aortic aneurysm. Recommend vascular consultation and follow-up every 12 months. 6. Cholelithiasis without evidence of cholecystitis. 7. Colonic diverticulosis without evidence of acute diverticulitis. Signed by: Amilcar Mcgill MD on 06/29/2019 2:08 PM
--- NOTE | 2019-06-29 19:45 | NUR ---
pt recieved. pt assessed. no ss of distress noted. pt attempting to get out bed. reoriented pt and educated pt on safety. pt verbalized understanding. tele in place. right shoulder sling in place. will cont to follow poc. call cano within reach.
[2019-06-29] MEDS: MELATONIN 5 MG TABLET PO SCH (19:59)
[2019-06-29] MEDS: ATORVASTATIN 40 MG TAB PO SCH (19:59)
[2019-06-29] MEDS: MIRTAZAPINE 15 MG TAB PO SCH (19:59)
[2019-06-30] VITALS (8 sets, daily range): BP systolic 105–133; BP diastolic 57–85
--- NOTE | 2019-06-30 | NUR ---
diaper saturated. pt cleaned and repositioned. no distress noted. call cano within reach.
--- NOTE | 2019-06-30 06:23 | NUR ---
bed bath given. linen changed. no distress noted. call cano within reach.
[2019-06-30] MEDS: INSULIN LISPRO 100 UNIT/1 ML 3ML VIAL SQ SCH ×4 (07:30→20:41)
[2019-06-30] MEDS: FAMOTIDINE 20 MG TAB PO SCH ×2 (07:30→16:46)
--- NOTE | 2019-06-30 07:30 | NUR ---
Received patient, alert and responsive, in bed, no distress, sling in place to right arm, will monitor.
[2019-06-30] MEDS: FINASTERIDE 5 MG TAB PO SCH (09:00)
[2019-06-30] MEDS: LORATADINE 10 MG TAB PO SCH (09:00)
[2019-06-30] MEDS: TAMSULOSIN HCL 0.4 MG CAP PO SCH (09:00)
[2019-06-30] MEDS: APIXAB 2.5 MG TABLET PO SCH (09:00)
[2019-06-30] MEDS: BENZONATATE 100 MG CAP PO SCH ×2 (09:00→16:46)
[2019-06-30] MEDS: METOPROLOL TARTRATE 25 MG TAB PO SCH ×2 (09:00→16:46)
[2019-06-30] MEDS: SENNOSIDES 8.6 MG TAB PO SCH ×2 (09:00→16:46)
[2019-06-30] MEDS: IRON-VITAMIN-MINERAL CAPSULE PO SCH ×2 (09:00→16:46)
--- NOTE | 2019-06-30 10:17 | NUR ---
Rounds by Dr. Ortiz, started patient on Lasix 20mg and states from his standpoint, patient is ok to discharge. SNF pending at this point.
[2019-06-30] MEDS: FUROSEMIDE 20 MG TAB PO SCH (10:28)
--- NOTE | 2019-06-30 16:31 | NUR ---
CALLED FACILITY TO GET UPDATE WAS TOLD STILL PENDING. NARINDER CALLED OLIVIA WITH [facility] AND GOT VOICE MAIL.
[2019-06-30] MEDS: ACETAMINOPHEN/CODEINE 300MG - 30MG TAB PO PRN (18:32)
--- NOTE | 2019-06-30 19:11 | NUR ---
Report given to on coming nurse, rounds completed, safety in place,
[2019-06-30] MEDS: MELATONIN 5 MG TABLET PO SCH (20:40)
[2019-06-30] MEDS: MIRTAZAPINE 15 MG TAB PO SCH (20:40)
[2019-06-30] MEDS: ATORVASTATIN 40 MG TAB PO SCH (20:40)
--- NOTE | 2019-07-01 00:12 | Progress Note ---
DATE: 06/30/2019 Psychiatric Progress Note SUBJECTIVE: The patient evaluated and events noted. The patient is in the room. He is doing better. He is eating better. He is calm. He is not getting any p.r.n. medication. He is oriented to situation. He denies any depression. He denies . ASSESSMENT: 1. Adjustment disorder with mixed mood. 2. Rule out psychosis. PLAN: 1. Continue Remeron 7.5 mg p.o. at bedtime. 2. Continue with Risperdal p.r.n. p.o. 3. Continue Haldol p.r.n. IM. 4. Monitor for agitation. Dictated by Baylee Shaikh PA-C Shikha Rasmussen MD QTV/ANN /[id number]
[2019-07-01 01:14] VITALS: BP 113/75
[2019-07-01 06:37] VITALS: BP 121/79
[2019-07-01 06:44] LABS: BASOPHILS # (AUTO) 0.1 (0.0-0.1); BASOPHILS % 0.8 % (0.0-1.0); EOSINOPHILS # (AUTO) 0.9 (0.0-0.4); EOSINOPHILS % 7.2 % (0.0-6.0); HEMATOCRIT 28.3 % (38.2-49.6); HEMOGLOBIN 9.1 g/dL (14.0-18.0); LYMPHOCYTES % 16.6 % (18.0-39.1); MEAN CORPUSCULAR HEMOGLOBIN 26.6 pg (28-32); MEAN CORPUSCULAR HGB CONC 32.2 g/dL (31-35); MEAN CORPUSCULAR VOLUME 82.7 fL (81-99); MONOCYTES # (AUTO) 1.2 (0.2-0.8); MONOCYTES % 10.3 % (4.4-11.3); NEUTROPHILS # (AUTO) 7.7 (2.1-6.9); PLATELET COUNT 303 x10e3/uL (140-360); RED BLOOD COUNT 3.42 x10e6/uL (4.3-5.7); RED CELL DISTRIBUTION WIDTH 15.5 % (11.7-14.4)
[2019-07-01 07:02] LABS: ANION GAP 14.9 mmol/L (8-16); CALCIUM 9.2 mg/dL (8.4-10.2); CREATININE, SERUM 1.29 mg/dL (0.72-1.25); POTASSIUM 3.9 mmol/L (3.5-5.1)
[2019-07-01] MEDS: INSULIN LISPRO 100 UNIT/1 ML 3ML VIAL SQ SCH ×4 (07:30→18:15)
[2019-07-01 08:02] VITALS: BP 119/78
[2019-07-01 08:26] VITALS: BP 121/79
--- NOTE | 2019-07-01 08:26 | NUR ---
CALLED [facility] FOR UPDATE ON SNF REFERRAL
--- NOTE | 2019-07-01 08:42 | NUR ---
GOT OLIVIA FROM [facility] AND DELORES FROM [facility] ON PHONE AT SAME TIME, TOLD THAT INSURANCE HAS NOT RECEIVED ANYTHING AND THAT MILO FROM [facility] [employer] HAS CONFIRMATION, GOT FAX NUMBER TO OLIVIA SO SHE CAN PROCESS. HOPE THIS WILL MOVE THIS ALONG
[2019-07-01] MEDS: FAMOTIDINE 20 MG TAB PO SCH ×2 (09:17→18:13)
[2019-07-01] MEDS: APIXAB 2.5 MG TABLET PO SCH (09:17)
[2019-07-01] MEDS: IRON-VITAMIN-MINERAL CAPSULE PO SCH ×2 (09:17→18:13)
[2019-07-01] MEDS: TAMSULOSIN HCL 0.4 MG CAP PO SCH (09:17)
[2019-07-01] MEDS: LORATADINE 10 MG TAB PO SCH (09:17)
[2019-07-01] MEDS: FUROSEMIDE 20 MG TAB PO SCH (09:18)
[2019-07-01] MEDS: DIGOXIN 0.125 MG TAB PO SCH (09:18)
[2019-07-01] MEDS: FINASTERIDE 5 MG TAB PO SCH (09:19)
[2019-07-01] MEDS: SENNOSIDES 8.6 MG TAB PO SCH ×2 (09:19→18:13)
[2019-07-01] MEDS: METOPROLOL TARTRATE 25 MG TAB PO SCH ×2 (09:19→18:13)
[2019-07-01] MEDS: BENZONATATE 100 MG CAP PO SCH ×2 (09:20→18:13)
[2019-07-01 12:00] VITALS: BP 111/73
--- NOTE | 2019-07-01 14:44 | NUR ---
RESIDENTIAL FACILITY DISCHARGE INFORMATION PATIENT HAS BEEN ACCEPTED TO: NAME: GERALDO ADDRESS: [id number] ACCEPTING MD: DEANDRA ROOM:[id number] NURSE CALL REPORT TO: [phone] IMM SIGNED AND OBTAINED (if applicable): THE FOLLOWING DOCUMENTS MUST ACCOMPANY PATIENT FOR TRANSFER: COPIED CHART: PACKET
--- NOTE | 2019-07-01 14:47 | NUR ---
NOTIFIED CM, NURSE STATION AND HOUSE SUP OF ROOM.
[2019-07-01 16:00] VITALS: BP 118/72
--- NOTE | 2019-07-01 16:45 | NUR ---
report given to Ana at [facility].
--- NOTE | 2019-07-01 18:20 | NUR ---
called pt to inform her of mr.r. sampson transfer to [facility].
--- NOTE | 2019-07-02 01:28 | Progress Note ---
DATE: 07/01/2019 Psychiatric Progress Note SUBJECTIVE: The patient evaluated and events noted. The patient is in the room. He is alert, awake, and oriented to situation. He is calm and cooperative. He notes his appetite has improved. He ate everything on the plate. He denies any depression. He denies anxiety. He denies any hallucination. He denies any suicidal ideation. He is not agitated. The patient has not received any p.r.n. IM medication. Monitor for agitation and mood. ASSESSMENT: 1. Adjustment disorder with mixed mood. 2. Rule out psychosis. PLAN: 1. Continue Remeron 7.5 mg p.o. at bedtime. 2. Continue p.r.n. risperidone, Haldol. 3. Monitor for agitation. Dictated by Baylee Shaikh PA-C Shikha Rasmussen MD QTV/MODL /[id number]
--- NOTE | 2019-07-03 01:32 | Discharge Summary ---
The patient was discharged back to disability case manager and patient's nursing care. I was not notified. The patient is an 79-year-old male with hypoglycemic episode. The patient was taking Amaryl. His glycohemoglobin A1c was 5.8. The patient fell and suffered non-complicated right clavicular fractures. The patient has confusion. He was able to answer some questions, but more so in the past than present. The patient has difficulty remembering currently that. The patient lives with his spouse, who is no longer able to care for the patient at this time. The patient will go to skilled facility. At the skilled facility, the patient will be evaluated for possible placement. Discussed the patient's status at length. The patient's family is aware. continue with management. He will not use his right upper extremity extensively. Physical Therapy will educate the patient regarding his limitation. The patient is otherwise stable. He was discharged through disability case manager and his RN. I was not notified to review medication reconciliation. MD YUKI Soliz/ANN /[id number]
== END 2019-07-01 18:51 | DRG 638 ==
LOC: ER 10:33 → ERHOLD 12:52 → MED/SURG 14:46 → OBSVTOIN 06-27 22:22 → MED/SURG 06-28 16:57
PROVIDERS: ADMIT Internal Medicine; ATTEND Internal Medicine
DX: E11.649 Type 2 diabetes mellitus with hypoglycemia without coma (principal); I48.20 Chronic atrial fibrillation, unspecified; I13.0 Hypertensive heart and chronic kidney disease with heart failure and stage 1 through stage 4 chronic kidney disease, or unspecified chronic kidney disease; I50.22 Chronic systolic (congestive) heart failure; E86.0 Dehydration; T46.0X5A Adverse effect of cardiac-stimulant glycosides and drugs of similar action, initial encounter; I25.10 Atherosclerotic heart disease of native coronary artery without angina pectoris; Z95.1 Presence of aortocoronary bypass graft; Z79.4 Long term (current) use of insulin; S42.031A Displaced fracture of lateral end of right clavicle, initial encounter for closed fracture; W19.XXXA Unspecified fall, initial encounter; F03.90 Unspecified dementia, unspecified severity, without behavioral disturbance, psychotic disturbance, mood disturbance, and anxiety; F43.29 Adjustment disorder with other symptoms; N40.0 Benign prostatic hyperplasia without lower urinary tract symptoms; E78.5 Hyperlipidemia, unspecified; E11.22 Type 2 diabetes mellitus with diabetic chronic kidney disease; N18.9 Chronic kidney disease, unspecified
CPT/HCPCS: 36415; 70450; 71045; 71250; 72125; 72170; 74176; 80048; 80053; 80061; 80162; 81001; 82550; 82553; 82607; 82746; 82948; 83036; 83540; 83735; 83880; 84443; 84466; 84484; 85025; 85610; 85730; 87086; 93005; 93306; 93880; 96372; 97139; 99284; G0378; J1630; J2354; J7070; J7799

== ENCOUNTER 2019-09-29 19:13 | Inpatient (IN) | payer OTHER ==
[~2019-09-29] VITALS: Ht 177.8 cm; Wt 53.1 kg
[~2019-09-29 19:13] MED LIST: BENZONATATE100 MG PO; DIGOXIN125 MCG PO; ELIQUIS2.5 MG PO; FINASTERIDE5 MG PO; FLOMAX0.4 MG PO; FLUOCINONIDE15 GM; GLIMEPIRIDE2 MG PO; LASIX20 MG PO; LIPITOR20 MG; LOPERAMIDE2 MG PO; LORATADINE10 MG PO; LOSARTAN POTASS25 MG PO; MELATONIN3 MG PO; METFORMIN HCL500 MG PO; METOPROLOL TART25 MG PO; RANITIDINE HCL150 M1; SPIRONOLACTONE25 MG PO; TYLENOL WITH C1 EACH PO
--- OUTSIDE RECORDS SUMMARY | 2019-09-29 19:17 | XMS REPORT ---
Author Author [facility] Address 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 Ordering Clinician Indication Dosage Frequency Signature (SIG) Comments Components Source Acetaminophen With Codeine (Tylenol With Codeine #3 Ta blet) 1 Each Tablet Acetaminophen With Codeine (Tylenol With Codeine #3 Tablet) 1 Each Tablet Yes 300 Every 4 Hours [facility] Apixaban (Eliquis) 2.5 Mg Tablet Apixaban (Eliquis) 2.5 Mg Tablet Yes 2.5 Twice A Day [facility] Atorvastatin Calcium (Lipitor) 20 Mg Tablet Atorvastat in Calcium (Lipitor) 20 Mg Tablet Yes 80 Daily [facility] Benzonatate 100 Mg Capsule Benzonatate 100 Mg Capsule Yes 100 Twice A Day [facility] Digoxin 125 Mcg Tablet Digoxin 125 Mcg Tablet Yes .125 Daily [facility] Finasteride 5 Mg Tablet Finasteride 5 Mg Tablet Yes 5 Daily [facility] Fluocinonide 15 Gm Cream..g. Fluocinonide 15 Gm Cream..g. Yes Daily [facility] Furosemide (Lasix) 20 Mg Tablet Furosemide (Lasix) 20 Mg Tablet Yes 20 Daily [facility] Glimepiride 2 Mg Tablet Glimepiride 2 Mg Tablet Yes 2 Twice A Day [facility] Loperamide Hcl (Loperamide) 2 Mg Tablet Loperamide Hcl (Margareth ramide) 2 Mg Tablet Yes 2 [facility] Loratadine 10 Mg Tablet Loratadine 10 Mg Tablet Yes 10 Daily [facility] Losartan Potassium 25 Mg Tablet Losartan Potassium 25 Mg Tablet Yes 25 Daily [facility] Melatonin 3 Mg Tablet Melatonin 3 Mg Tablet Yes 5 Bedtime [facility] Metformin Hcl 500 Mg Tablet Metformin Hcl 500 Mg Tablet Yes 500 Twice A Day [facility] Metoprolol Tartrate 25 Mg Tablet Metoprolol Tartrate 25 Mg Tablet Yes 25 Twice A Day [facility] Ranitidine Hcl 150 Mg Capsule Ranitidine Hcl 150 Mg Capsule Yes Twice A Day [facility] Spironolactone 25 Mg Tablet Spironolactone 25 Mg Tablet Yes 25 Daily [facility] Tamsulosin Hcl (Flomax*) 0.4 Mg Cap Tamsulosin Hcl (Flomax*) 0.4 Mg C ap Yes .4 Daily [facility] Benzonatate 100 Mg Capsule, 100 Mg Oral Benzonatate 100 Mg C apsule, 100 Mg Oral 2019-06-27 00:00:00 No 100 Daily as needed fo r Cough [facility] Procedures Procedure Date / Time Performed Performing Clinician Kartik sosa Computed tomography of chest without contrast 2019-06-29 00:00:0 0 RAMA [facility] CT of abdomen and pelvis without contrast 2019-06-29 00:00:00 TR YVONNE [facility] Computed tomography of brain without radiopaque contrast 00:00:[address] [facility] [place] [place] Computed tomography of cervical spine without contrast 06-26 00:00:[address] [facility] [place] [place] Encounters Start Date/Time End Date/Time [facility]counter [facility] En[facility] ID Source 2019-06-27 22:22:00 2019-07-01 18:51:00 Discharged Inpatient 1 RAMA [facility] [id number] [facility] Results Test Description Test Time Test Comments Results Result Comments Source Bedside Glucose 2019-07-01 16:33:00 Test Item Bedside Glucose (test code = 90193-2) 232 70-120 [id number] 2019-07-01 07:09:00* Test Item Value Reference Range Interpretation Comments Sodium Level (test code = 2951-2) 134 136-145 [facility] Skyeo4283-29-98 07:09:00* Test Item Value Reference Range Interpretation Comments Potassium Level (test code = 2823-3) 3.9 3.5-5.1 [facility]Chloride Zqeui0957-88-65 07:09:00* Test Item Value Reference Range Interpretation Comments Chloride Level (test code = 2075-0) 102 98-107 [facility] HospitalCarbon Dioxide Cmpxj3353-31-47 07:09:00* Test Item Value Reference Range Interpretation Comments Carbon Dioxide Level (test code = 2028-9) 21 22-29 [facility]Anion Gck3741-54-86 07:09:00* Test Item Value Reference Range Interpretation Comments Anion Gap (test code = 58656-3) 14.9 8-16 [facility]Blood Urea Gesgizvx8554-41-42 07:09:00* Test Item Value Reference Range Interpretation Comments Blood Urea Nitrogen (test code = 3094-0) 36 7-26 [facility] HospitalCreatinine2020-02-13 07:09:00* Test Item Value Reference Range Interpretation Comments Creatinine (test code = 2160-0) 1.29 0.72-1.25 [facility] HospitalBUN/Creatinine Hwxbe1088-78-08 07:09:00* Test Item Value Reference Range Interpretation Comments BUN/Creatinine Ratio (test code = 3097-3) 28 6-25 [facility] HospitalEstimat Glomerular Filtration Rate 2019-07-01 07:09:00* Test Item Value Reference Range Interpretation Comments Estimat Glomerular Filtration Rate (test code = 791834007) 54 >60 Ranges were taken from the National Kidney Disease Education Program and the [facility] literature.Reference ranges:60 or greater: Pxjxds72-60 ( for 3 consecutive months): Chronic kidney disease 15 or less: Kidney failureHemphill County HospitalGlucose Ywcdv9151-91-32 07:09:00* Test Item Value Reference Range Interpretation Comments Glucose Level (test code = ETF7322) 98 74-118 [facility] HospitalCalcium Qqmkl1948-75-93 07:09:00* Test Item Value Reference Range Interpretation Comments Calcium Level (test code = 63102-6) 9.2 8.4-10.2 [facility] HospitalWhite Blood Ddxrd3796-73-55 06:47:00* Test Item Value Reference Range Interpretation Comments White Blood Count (test code = 6690-2) 12.00 4.8-10.8 [facility] HospitalRed Blood Omirf9328-60-34 06:47:00* Test Item Value Reference Range Interpretation Comments Red Blood Count (test code = 789-8) 3.42 4.3-5.7 [facility] HospitalHemoglobin2020-02-13 06:47:00* Test Item Value Reference Range Interpretation Comments Hemoglobin (test code = 83495-2) 9.1 14.0-18.0 [facility] HospitalHematocrit2020-02-13 06:47:00* Test Item Value Reference Range Interpretation Comments Hematocrit (test code = 4544-3) 28.3 38.2-49.6 [facility] HospitalMean Corpuscular Wnzbwx4413-38-44 06:47:00* Test Item Value Reference Range Interpretation Comments Mean Corpuscular Volume (test code = 787-2) 82.7 81-99 [facility] HospitalMean Corpuscular Wumyinrwot8864-94-35 06:47:00* Test Item Value Reference Range Interpretation Comments Mean Corpuscular Hemoglobin (test code = 785-6) 26.6 28-32 [facility] HospitalMean Corpuscular Hemoglobin Concent 2019-07-01 06:47:00* Test Item Value Reference Range Interpretation Comments Mean Corpuscular Hemoglobin Concent (test code = 786-4) 32.2 31-35 [facility] HospitalRed Cell Distribution Xerik2446-69-84 06:47:00* Test Item Value Reference Range Interpretation Comments Red Cell Distribution Width (test code = 32800-4) 15.5 11.7 -14.4 [facility] HospitalPlatelet Hxfff2103-08-11 06:47:00* Test Item Value Reference Range Interpretation Comments Platelet Count (test code = 777-3) 303 140-360 [facility] HospitalNeutrophils (%) (Auto)2019-07-01 06:47:00 * Test Item Value Reference Range Interpretation Comments Neutrophils (%) (Auto) (test code = 34683-9) 64.0 38.7-80.0 [facility] HospitalLymphocytes (%) (Auto)2019-07-01 06:47:00 * Test Item Value Reference Range Interpretation Comments Lymphocytes (%) (Auto) (test code = 736-9) 16.6 18.0-39.1 [facility] HospitalMonocytes (%) (Auto)2019-07-01 06:47:00* Test Item Value Reference Range Interpretation Comments Monocytes (%) (Auto) (test code = 5905-5) 10.3 4.4-11.3 [facility] HospitalEosinophils (%) (Auto)2019-07-01 06:47:00 * Test Item Value Reference Range Interpretation Comments Eosinophils (%) (Auto) (test code = 713-8) 7.2 0.0-6.0 [facility] HospitalBasophils (%) (Auto)2019-07-01 06:47:00* Test Item Value Reference Range Interpretation Comments Basophils (%) (Auto) (test code = 706-2) 0.8 0.0-1.0 [facility] HospitalIM GRANULOCYTES %2019-07-01 06:47:00* Test Item Value Reference Range Interpretation Comments IM GRANULOCYTES % (test code = IM GRANULOCYTES %) 1.1 0.0- 1.0 [facility] HospitalNeutrophils # (Auto)2019-07-01 06:47:00* Test Item Value Reference Range Interpretation Comments Neutrophils # (Auto) (test code = 751-8) 7.7 2.1-6.9 [facility] HospitalLymphocytes # (Auto)2019-07-01 06:47:00* Test Item Value Reference Range Interpretation Comments Lymphocytes # (Auto) (test code = 30638-5) 2.0 1.0-3.2 [facility] HospitalMonocytes # (Auto)2019-07-01 06:47:00* Test Item Value Reference Range Interpretation Comments Monocytes # (Auto) (test code = 742-7) 1.2 0.2-0.8 [facility] HospitalEosinophils # (Auto)2019-07-01 06:47:00* Test Item Value Reference Range Interpretation Comments Eosinophils # (Auto) (test code = 711-2) 0.9 0.0-0.4 [facility] HospitalBasophils # (Auto)2019-07-01 06:47:00* Test Item Value Reference Range Interpretation Comments Basophils # (Auto) (test code = 704-7) 0.1 0.0-0.1 [facility] HospitalAbsolute Immature Granulocyte (auto 2019-07-01 06:47:00* Test Item Value Reference Range Interpretation Comments Absolute Immature Granulocyte (auto (kayden t code = Absolute Immature Granulocyte (auto) 0.13 0-0.1 [facility] HospitalFolate2020-02-12 17:21:00* Test Item Value Reference Range Interpretation Comments Folate (test code = 2284-8) 3.7 >3.0 A serum folate concentration of less than 3.1 ng/mL isconsidered to represent cl inical deficiency.Performed at: - [facility] [id number] Director: Alex Alcantar MD, Phone: [phone] County HospitalCT CHEST [id number] 13:46:00 [place] [address] Patient Name: JAYLON VALDIVIA MR #: [id number] : 1940 Age/Sex: 79/M Req #: [id number] Adm Physician: SORAIDA ONTIVEROS MD Ordered by: SORAIDA ONTIVEROS MD Report #: [id number] Location: MED/SURG Room/Bed: [facility] Procedure: [id number] CT/CT CHEST WO Exam Date: 06/29/19 Exam Time: 1300 REPORT STATUS: Signed CT of the chest, abdomen, and pelvis History: Pain, shortness of breath Comparison: Non e available. Technique: Multidetector CT scanning of the abdomen and pelvis was perf ormed from the level of the thoracic inlet to the inferior pubic ramus, withou t IV contrast. DOSE REDUCTION: The examination was performed according to departmental dose-optimization program which includes automated exposure cont rol, adjustment of the mA and/or kV according to patient size and/or use of it erative reconstruction technique. DISCUSSION: CHEST FINDINGS: The visualized por tions of the thyroid gland are within normal limits. There is no axillary, mediastinal, or hilar lymphadenopathy. The heart is enlarged. A left subcla vian AICD is in place. Nonspecific pericardial calcifications are present. Thr ee-vessel atherosclerotic coronary calcifications are present. The thoracic ao rta is of normal course and caliber. The trachea and central airways are cl ear. A 6 mm pulmonary nodule is identified in the left upper lobe on series 4 axial image 32. A calcified granuloma is identified in the right lower lobe. There are scattered areas of atelectasis versus scarring. Small bilateral pleural effusions are present. There is no pneumothorax. There is a nond isplaced fracture of the distal right clavicle. No other acute thoracic osseou s amount is identified. ABDOMEN/PELVIS FINDINGS: No focal hepatic lesions are identified. The gallbladder is present and contains small calcified galls tones. There is no gallbladder distention or pericholecystic fluid. No intrahe patic or extrahepatic dilatation. The spleen is within normal limits. The bilateral adrenal glands are unremarkable. The pancreas is normal in at tenuation. There is no pancreatic ductal dilatation or peripancreatic inflamma tory stranding. The kidneys are normal in size. There is no hydroureteronep hrosis bilaterally. No renal calculi are identified. The stomach, small, and large bowel are nondistended. There is no evidence of obstruction. No mercedes l wall thickening is appreciated. Scattered colonic diverticula are present wi thout evidence of acute diverticulitis. There is no free intraperitoneal ai r or ascites. A fusiform infrarenal abdominal aortic aneurysm is present wh ich measures 4.2 cm in maximum diameter. The urinary bladder is within no rmal limits. There are multilevel degenerative changes of the thoracolumbar spine. IMPRESSION: 1. Small bilateral pleural effusions. 2. Cardiom egaly. 3. Acute nondisplaced right distal clavicle fracture. 4. 6 mm left up per lobe pulmonary nodule. Follow-up CT in 6-12 months and then at 18-24 month s is recommended. 5. Fusiform 4.2 cm diameter infrarenal abdominal aortic aneu rysm. Recommend vascular consultation and follow-up every 12 months. 6. Cho lelithiasis without evidence of cholecystitis. 7. Colonic diverticulosis witho ut evidence of acute diverticulitis. Signed by: Amilcar Pascual MD on 06/19 2:08 PM Dictated By: AMILCAR PASCUAL MD 07 Transcribed By: ELLIS on 06/29/191407 COPY TO: SORAIDA ONTIVEROS MD CT ABDOMEN/PELVIS [id number] 13:46:00 [place] [address] Patient Name: JAYLON VALDIVIA MR #: [id number] : 1940 Age/Sex: 79/M Req #: [id number] Adm Physician: SORAIDA ONTIVEROS MD Ordered by: SORAIDA ONTIVEROS MD Report #: [id number] Location: MED/SURG Room/Bed: [facility] Procedure: [id number] CT/CT ABDOMEN/PELVIS WO Exam Date: 06/29/19 Exam Time: 130 0 REPORT STATUS: Signed CT of th e chest, abdomen, and pelvis History: Pain, shortness of breath Compar jackie: None available. Technique: Multidetector CT scanning of the abdomen and pelvis was performed from the level of the thoracic inlet to the inferior pubic everett s, without IV contrast. DOSE REDUCTION: The examination was performed acc ording to departmental dose-optimization program which includes automated expo sure control, adjustment of the mA and/or kV according to patient size and/or use of iterative reconstruction technique. DISCUSSION: CHEST FINDINGS: The visua lized portions of the thyroid gland are within normal limits. There is no a xillary, mediastinal, or hilar lymphadenopathy. The heart is enlarged. A le ft subclavian AICD is in place. Nonspecific pericardial calcifications are pre sent. Three-vessel atherosclerotic coronary calcifications are present. The th oracic aorta is of normal course and caliber. The trachea and central airwa ys are clear. A 6 mm pulmonary nodule is identified in the left upper lobe on series 4 axial image 32. A calcified granuloma is identified in the right l ower lobe. There are scattered areas of atelectasis versus scarring. Smal l bilateral pleural effusions are present. There is no pneumothorax. There is a nondisplaced fracture of the distal right clavicle. No other acute thorac ic osseous amount is identified. ABDOMEN/PELVIS FINDINGS: No focal hepati c lesions are identified. The gallbladder is present and contains small calcif ied gallstones. There is no gallbladder distention or pericholecystic fluid. N o intrahepatic or extrahepatic dilatation. The spleen is within normal limi ts. The bilateral adrenal glands are unremarkable. The pancreas is nor mal in attenuation. There is no pancreatic ductal dilatation or peripancreatic inflammatory stranding. The kidneys are normal in size. There is no hydrou reteronephrosis bilaterally. No renal calculi are identified. The stomach , small, and large bowel are nondistended. There is no evidence of obstruction . No bowel wall thickening is appreciated. Scattered colonic diverticula are p resent without evidence of acute diverticulitis. There is no free intraperi toneal air or ascites. A fusiform infrarenal abdominal aortic aneurysm is p resent which measures 4.2 cm in maximum diameter. The urinary bladder is within normal limits. There are multilevel degenerative changes of the thor acolumbar spine. IMPRESSION: 1. Small bilateral pleural effusions. 2 . Cardiomegaly. 3. Acute nondisplaced right distal clavicle fracture. 4. 6 m m left upper lobe pulmonary nodule. Follow-up CT in 6-12 months and then at 18 -24 months is recommended. 5. Fusiform 4.2 cm diameter infrarenal abdominal ao rtic aneurysm. Recommend vascular consultation and follow-up every 12 months. 6. Cholelithiasis without evidence of cholecystitis. 7. Colonic diverticulo sis without evidence of acute diverticulitis. Signed by: Amilcar Pascual MD on 06/29/2019 2:08 PM Dictated By: AMILCAR PASCUAL MD 07 Transcribed By: ELLIS on 06/19 COPY TO: SORAIDA ONTIVEROS MD Vitamin B12 [id number] 07:24:00* Test Item Value Reference Range Interpretation Comments Vitamin B12 Level (test code = 13342-8) 791 213-816 [facility] HospitalThyroid Stimulating Hormone (TSH) 2019-06-28 07:24:00* Test Item Value Reference Range Interpretation Comments Thyroid Stimulating Hormone (TSH) (test code = 84319-5) 0.444 0.350-4.940 [facility] HospitalIron Ghdod1316-17-32 07:03:00* Test Item Value Reference Range Interpretation Comments Iron Level (test code = 2498-4) 20 65-175 [facility] HospitalTotal Iron Binding Voqynqiu5051-91-09 07:03:00* Test Item Value Reference Range Interpretation Comments Total Iron Binding Capacity (test code = 2500-7) 305 261-4 78 [facility] HospitalPercent Iron Jxzrwptvee6859-09-21 07:03:00* Test Item Value Reference Range Interpretation Comments Percent Iron Saturation (test code = 2502-3) 7 15-50 [facility] HospitalTransferrin2020-02-10 07:03:00* Test Item Value Reference Range Interpretation Comments Transferrin (test code = 3034-6) 218 174-364 [facility] HospitalDigoxin Xodsv6219-24-19 06:53:00* Test Item Value Reference Range Interpretation Comments Digoxin Level (test code = 43717-1) 0.84 0.8-2.0 [facility] HospitalHemoglobin A1c Pmdoogg6249-00-29 06:51:00 * Test Item Value Reference Range Interpretation Comments Hemoglobin A1c Percent (test code = Hemoglobin A1c Percent) 5.5 4.0-7.0 [facility] HospitalCreatine Kinase [id number] 14:57:00* Test Item Value Reference Range Interpretation Comments Creatine Kinase MB (test code = 35033-3) 0.70 0-5.0 [facility] HospitalTroponin [id number] 14:57:00* Test Item Value Reference Range Interpretation Comments Troponin I (test code = YRF0775) 0.051 0-0.300 [facility] HospitalCreatine Iteqpa6234-76-49 14:50:00* Test Item Value Reference Range Interpretation Comments Creatine Kinase (test code = 2157-6) 42 30-200 [facility] HospitalTotal Npiejudlf8652-42-69 07:33:00* Test Item Value Reference Range Interpretation Comments Total Bilirubin (test code = 1975-2) 0.7 0.2-1.2 [facility] HospitalAspartate Amino Transf (AST/SGOT) 2019-06-27 07:33:00* Test Item Value Reference Range Interpretation Comments Aspartate Amino Transf (AST/SGOT) (test code = Aspartate Amino Transf (AST/SGOT)) 16 5-34 [facility] HospitalAlanine Aminotransferase (ALT/SGPT) 2019-06-27 07:33:00* Test Item Value Reference Range Interpretation Comments Alanine Aminotransferase (ALT/SGPT) (test code = 1742-6) 15 0-55 [facility] HospitalTotal Tixfsjg1465-47-04 07:33:00* Test Item Value Reference Range Interpretation Comments Total Protein (test code = 2885-2) 6.5 6.5-8.1 [facility] HospitalAlbumin2020-02-09 07:33:00* Test Item Value Reference Range Interpretation Comments Albumin (test code = 1751-7) 3.2 3.5-5.0 [facility] HospitalGlobulin2020-02-09 07:33:00* Test Item Value Reference Range Interpretation Comments Globulin (test code = 12845-4) 3.3 2.3-3.5 [facility] HospitalAlbumin/Globulin Nmruz9846-60-69 07:33:00 * Test Item Value Reference Range Interpretation Comments Albumin/Globulin Ratio (test code = 1759-0) 1.0 0.8-2.0 [facility] HospitalAlkaline Wsiguxchhvn2149-80-20 07:33:00* Test Item Value Reference Range Interpretation Comments Alkaline Phosphatase (test code = 6768-6) 119 40-150 [facility] HospitalTriglycerides Theqw3309-06-07 07:33:00* Test Item Value Reference Range Interpretation Comments Triglycerides Level (test code = 2571-8) 79 0-149 [facility] HospitalCholesterol Lvbro2584-09-34 07:33:00* Test Item Value Reference Range Interpretation Comments Cholesterol Level (test code = 2093-3) 70 0-199 Less than 200 mg/dL Low Rysl314 - 239 mg/dL Borderline Zlob003 m g/dl and greater High Risk [facility] HospitalLDL Fpatqfwmtqg7237-28-49 07:33:00* Test Item Value Reference Range Interpretation Comments LDL Cholesterol (test code = 2089-1) 36 60-130 [facility] HospitalHDL Cupzofcthzj1541-60-33 07:33:00* Test Item Value Reference Range Interpretation Comments HDL Cholesterol (test code = 2085-9) 18 40-60 [facility] HospitalCholesterol/HDL Mvvwm2651-68-00 07:33:00 * Test Item Value Reference Range Interpretation Comments Cholesterol/HDL Ratio (test code = 9830-1) 3.9 3.9-4.7 [facility] HospitalUrine [id number] 14:26:00* Test Item Value Reference Range Interpretation Comments Urine WBC (test code = 5821-4) 0-5 0-5 [facility] HospitalUrine [id number] 14:26:00* Test Item Value Reference Range Interpretation Comments Urine RBC (test code = 44465-1) 0-5 0-5 [facility] HospitalUrine Udfebdhm1466-88-95 14:26:00* Test Item Value Reference Range Interpretation Comments Urine Bacteria (test code = 35252-6) FEW NONE [facility] HospitalUrine Epithelial Jugbd6428-88-17 14:26:00 * Test Item Value Reference Range Interpretation Comments Urine Epithelial Cells (test code = 49340-3) FEW NONE [facility] HospitalUrine Njqfa0821-83-49 14:06:00* Test Item Value Reference Range Interpretation Comments Urine Color (test code = 5778-6) YELLOW YELLOW [facility] HospitalUrine Jprovox3105-90-76 14:06:00* Test Item Value Reference Range Interpretation Comments Urine Clarity (test code = 02943-9) CLEAR CLEAR [facility] HospitalUrine Specific Hfmnvmn2256-71-04 14:06:00 * Test Item Value Reference Range Interpretation Comments Urine Specific Benedict (test code = 5811-5) 1.015 1.010-1.02 5 [facility] HospitalUrine bO7887-00-31 14:06:00* Test Item Value Reference Range Interpretation Comments Urine pH (test code = 65305-0) 5 5-7 [facility] HospitalU[facility] Leukocyte Xjfehmmy3961-03-77 14:06:00* Test Item Value Reference Range Interpretation Comments Urine Leukocyte Esterase (test code = 5799-2) NEGATIVE NEGATIVE [facility] HospitalUrine Ffedzlv5016-13-81 14:06:00* Test Item Value Reference Range Interpretation Comments Urine Nitrite (test code = 71494-9) NEGATIVE NEGATIVE [facility] HospitalUrine Btgbftq2935-21-02 14:06:00* Test Item Value Reference Range Interpretation Comments Urine Protein (test code = 5804-0) NEGATIVE NEGATIVE [facility] HospitalUrine Glucose (UA)2019-06-26 14:06:00* Test Item Value Reference Range Interpretation Comments Urine Glucose (UA) (test code = 2349-9) NEGATIVE NEGATIVE [facility] [id number] 14:06:00* Test Item Value Reference Range Interpretation Comments Urine Ketones (test code = 50108-1) NEGATIVE NEGATIVE [facility] [id number] 14:06:00* Test Item Value Reference Range Interpretation Comments Urine Urobilinogen (test code = 25031-0) 0.2 0.2-1 [facility] [id number] 14:06:00* Test Item Value Reference Range Interpretation Comments Urine Bilirubin (test code = 1978-6) NEGATIVE NEGATIVE [facility] [id number] 14:06:00* Test Item Value Reference Range Interpretation Comments Urine Blood (test code = 34367-0) NEGATIVE NEGATIVE [facility] [id number] 12:16:00 [facility] [address] [address] Patient Name: JAYLON VALDIVIA MR #: [id number] : 1940 Age/Sex: 79/M Req #: [id number] Adm Physician: Ordered by: JAN MIMS MD Report #: [id number] Location: ER Room/Bed: Procedure: [id number] CT/ CT CERVICAL SPINE WO Exam Date: 06/26/19 Exam Time: 1131 REPORT STATUS: Signed Histo ry: Fall, pain Comparison studies:None Technique: Axial images were obt ained from the brain and cervical spine. Coronal and sagittal images reconstru cted from the axial data. Intravenous contrast: None Dose modulation, iterat shanon reconstruction, and/or weight based adjustment of the mA/kV was utilized t o reduce the radiation dose to as low as reasonably achievable. Findings: Head CT: Scalp/skull: No abnormalities. Extra-axial spaces: No masses. No fluid collections. Brain sulci: Mildly prominent. Ventri cles: Moderate compensatory dilatation more significant at the temporal horns which can be seen in Alzheimer's. No hydrocephalus. Parenchyma: Subtle h ypodensities in the supratentorial white matter are small vessel ischemic rangel ges. No masses, hemorrhage, acute or chronic cortical vascular insults. S ellar/suprasellar region: No abnormalities. Craniocervical junction: Patent fo ramen magnum. No Chiari one malformation. Incidental findings: Atheroscl erotic calcifications in the carotid siphons and vertebral arteries . Cervi mercedes spine CT: Fractures: None. Soft tissues: No gross acute abnormalities . Atherosclerotic calcifications of the carotid bulbs. Atlantoaxial artic ulation: Degenerative changes without acute abnormality. Alignment: Normal cookie dosis. No scoliosis. Cervicomedullary junction: No abnormalities. Patent sumit en magnum. Vertebrae: No infection or neoplasm. Degenerative change s: Degenerative foraminal narrowing, severe left at C5-6 and severe right at C6-7. Incidental findings: Partially visualized fracture of the right med ial clavicle/sternoclavicular joint. Impression: Impression: 1. No acute abnormalities. 2. Mild generalized volume loss. 3. Mild suprate ntorial white matter small vessel ischemic 4. changes. Cervical spine C T: 1. No acute cervical spine abnormalities. 2. Cannot exclude ligament, s janee cord and or vascular abnormalities on the basis of this examination. 3 . Partially visualized acute fracture of the right medial clavicle/sternoclav icular joint. Signed by: DR Salvador Forbes M.D. on 06/26/2019 12:38 PM Dictated By: SALVADOR GRISSOM MD 1238 Transcribed By: ELLIS on 06/26/19 1238 RN ORTHOPAEDIC Y TO: JAN MIMS MD CT BRAIN [id number] 12:16:00 [address] [address] Patient Name: JAYLON VALDIVIA MR #: [id number] : 1940 Age/Sex: 79/M Req #: [id number] Adm Physician: Ordered by: JAN MIMS MD Report #: [id number] Location: ER Room/Bed: Procedure: [id number] CT/ CT BRAIN WO Exam Date: 06/26/19 Exam Time: 1131 REPORT STATUS: Signed History: Fall, pain Comparison studies:None Technique: Axial images were obtained from the brain and cervical spine. Coronal and sagittal images reconstructed from the axial data. Intravenous contrast: None Dose modulation, iterative recon struction, and/or weight based adjustment of the mA/kV was utilized to reduce the radiation dose to as low as reasonably achievable. Findings: Hea d CT: Scalp/skull: No abnormalities. Extra-axial spaces: No mass es. No fluid collections. Brain sulci: Mildly prominent. Ventricles: Mod erate compensatory dilatation more significant at the temporal horns which can be seen in Alzheimer's. No hydrocephalus. Parenchyma: Subtle hypodensit ies in the supratentorial white matter are small vessel ischemic changes. No m asses, hemorrhage, acute or chronic cortical vascular insults. Sellar/sup rasellar region: No abnormalities. Craniocervical junction: Patent foramen mag num. No Chiari one malformation. Incidental findings: Atherosclerotic ca lcifications in the carotid siphons and vertebral arteries . Cervical spine CT: Fractures: None. Soft tissues: No gross acute abnormalities. Atheros clerotic calcifications of the carotid bulbs. Atlantoaxial articulation: Degenerative changes without acute abnormality. Alignment: Normal lordosis. No scoliosis. Cervicomedullary junction: No abnormalities. Patent foramen magnum. Vertebrae: No infection or neoplasm. Degenerative changes: Deg enerative foraminal narrowing, severe left at C5-6 and severe right at C6-7. Incidental findings: Partially visualized fracture of the right medial clavi ashok/sternoclavicular joint. Impression: Impression: 1. No acut e abnormalities. 2. Mild generalized volume loss. 3. Mild supratentorial w sukhdeep matter small vessel ischemic 4. changes. Cervical spine CT: 1. No acute cervical spine abnormalities. 2. Cannot exclude ligament, spinal cor d and or vascular abnormalities on the basis of this examination. 3. Diann jackson visualized acute fracture of the right medial clavicle/sternoclavicular abiola int. Signed by: DR Salvador Forbes M.D. on 06/26/2019 12:38 PM D ictated By: SALVADOR GRISSOM MD 1238 Transcribed By: ELLIS on 06/26/19 1238 COPY TO: JAN FROST MD CHEST SINGLE (PORTABLE)2019-06-26 12:01:00 [address] [address] Patient Name: JAYLON VALDIVIA MR #: [id number] : 1940 Age/Sex: 79/M Req #: [id number] Adm Physician: Ordered by: JAN MIMS MD Report #: [id number] Location: ER Room/Bed: Procedure: [id number] DX/ CHEST SINGLE (PORTABLE) Exam Date: 06/26/19 Exam Jorge e: 1145 REPORT STATUS: Signed Ex amination: Single AP view of the chest. COMPARISON: None. INDICATION: Pain, trauma DISCUSSION: Lines/tubes: AICD. Sternotomy wires. Lungs: Enlargement of the central vasculature. No edema. Scattered calcified granuloma. Pleura: No pleural effusion or pneumothorax. Heart and mediastinum: Cardiomegaly. Bones and soft tissues: No acute bony abnormal ities. IMPRESSION: 1. Cardiomegaly without decompensation Signed by: Dr. Roseline De Paz M.D. on 06/26/2019 12:02 PM Dictated By: YVONNE DE PAZ MD 120 2 Transcribed By: ELLIS on 06/26/19 1202 COPY TO: JAN MIMS MD SHOULDER RIGHT [id number] 12:00:[address], [place] [address] Patient Name: JAYLON VALDIVIA MR #: [id number] : 1940 Age/Sex: 79/M Req #: [id number] Adm Physician: Ordered by: JAN MIMS MD Report #: [id number] Location: ER Room/Bed: Procedure: [id number] DX/ SHOULDER RIGHT COMPLETE Exam Date: 06/26/19 Exam Jorge e: 1145 REPORT STATUS: Signed Exam: Right shoulder 2 views History: Pain Comparison: None. F indings: Possible nondisplaced fracture of the distal clavicle. Mild acromiocl avicular arthrosis. Glenohumeral joint intact. No abnormal soft tissue calcifi cation or soft tissue defect. Impression: Possible nondisplaced frac ture of the distal clavicle Signed by: Dr. Roseline De Paz M.D. on 020 12:04 PM Dictated By: ROSELINE DE PAZ MD 1204 Transcribed By: ELLIS on 06/26/19 1204 COPY TO: JAN MIMS MD PELVIS AP 1-2 [id number] 12:00:[address] [address] Patient Name: JAYLON VALDIVIA MR #: [id number] : 1940 Age/Sex: 79/M Req #: [id number] Adm Physician: Ordered by: JAN MIMS MD Report #: [id number] Location: ER Room/Bed: Procedure: [id number] DX/ PELVIS AP 1-2 VIEWS Exam Date: 06/26/19 Exam Time: 1 145 REPORT STATUS: Signed Exa m: AP pelvis History: Pain Comparison: None. Findings: No fract ure or malalignment. Degenerative arthrosis of the hip joints No abnormal soft tissue calcification or soft tissue defect. Impression: No displaced fracture Signed by: Dr. Roseline De Paz M.D. on 06/26/2019 12:05 PM Dictated By: ROSELINE DE PAZ MD 1205 Transcribed By: ELLIS on 06/26/19 1205 COPY TO: JAN BROWN MD B-Type Natriuretic [id number] 11:48:00* Test Item Value Reference Range Interpretation Comments B-Type Natriuretic Peptide (test code = 35535-4) 207.4 0-100 [facility] [id number] 11:43:00* Test Item Value Reference Range Interpretation Comments Magnesium Level (test code = 42261-9) 1.6 1.3-2.1 [facility] Thromboplast Time 2019-06-26 11:31:00* Test Item Value Reference Range Interpretation Comments Activated Partial Thromboplast Time (test code = 57248-1) 44.5 23.8-35.5 [facility] [id number] 11:30:00* Test Item Value Reference Range Interpretation Comments Prothrombin Time (test code = 5902-2) 17.7 11.9-14.5 [facility] International Ratio 2019-06-26 11:30:00* Test Item Value Reference Range Interpretation Comments Prothromb Time International Ratio (test code = 6301-6) 1.36 Oral Anticoagulant Therapy INR Values:1. Low Intensity Therapy 1.5 - 2.02 . Moderate Intensity Therapy 2.0 - 3.03. High Intensity Therapy(1) 2.5 - 3. 54. High Intensity Therapy(2) 3.0 - 4.05. Panic Value INR > 5.0 [facility]
--- NOTE | 2019-09-29 20:04 | Emergency Department Note ---
History of Present Illnes History of Present Illness Chief Complaint: Extremity Trauma/Pain History of Present Illness This is a 79 year old male who was sent by pcp for leg swelling with weeping for about 1 month and a sodium of 124 from labs done in office on 09/27/19. . Historian: Patient Arrival Mode: Car Onset (how long ago): week(s) (4) Location: bilateral lower extremtiies Quality: swelling and weeping to bilateral lower extremities Radiation: non-radiation Severity: moderate Onset quality: gradual Duration (how long): week(s) (4) Timing of current episode: constant Progression: worsening Chronicity: chronic Relieving factors: none Exacerbating factors: none Associated symptoms: denies other symptoms Past Medical/Family History Physician Review I have reviewed the patient's past medical and family history. Any updates have been documented here. Past Medical History Recent Fever: No Clinical Suspicion of Infectio: No New/Unexplained Change in Ment: No Past Medical History: Hypertension, Diabetes, CHF, A-Fib, Anemia Past Surgical History: Pacer/AICD Other Surgery: LT VENTRICULAR RESECTION Social History Smoking Cessation: Former smoker Alcohol Use: Occasional Any Illegal Drug Use: No TB Exposure/Symptoms: No Physically hurt or threatened: No Other Last Tetanus: UTD Any Pre-Existing Lines (PICC,: No Is patient up to date on immun: Yes Last Flu: UTD Last Pneumovax: UTD Review of Systems Review of Systems Constitutional: no symptoms EENTM: no symptoms Cardiovascular: no symptoms Respiratory: no symptoms Gastrointestinal: no symptoms Genitourinary: no symptoms Musculoskeletal: as per HPI Integumentary: no symptoms Neurological: no symptoms Psychological: no symptoms Endocrine: no symptoms Hematological/Lymphatic: no symptoms Review of other systems All other systems reviewed and negative. Physical Exam Related Data Allergies: Coded Allergies: Penicillins (Verified Allergy, Severe, RASH, 06/28/19) Triage Vital Signs Vital Signs Date Time Temp Pulse Resp B/P (MAP) Pulse Ox O2 Delivery O2 Flow Rate FiO2 09/29/19 19:28 98.6 77 20 100/69 97 Physical Exam CONSTITUTIONAL Constitutional: well-developed, well-nourished HENT HENT: normocephalic, atraumatic, oropharynx clear/moist, nose normal HENT - Ear: left ext ear normal, right ext ear normal EYES Eyes: PERRL, conjunctivae normal NECK Neck: ROM normal PULMONARY Pulmonary: effort normal, breath sounds normal CARDIOVASCULAR Cardiovascular: regular rhythm, heart sounds normal, capillary refill normal, normal rate GASTROINTESTINAL Abdominal: soft, nontender, bowel sounds normal GENITOURINARY Genitourinary: exam deferred SKIN Skin: warm, dry MUSCULOSKELETAL Musculoskeletal: ROM normal (3+ pitting edema to both lower extremities with weeping of serous fluid), edema NEUROLOGICAL Neurological: alert, oriented x 3, no gross motor or sensory deficits PSYCHOLOGICAL Psychiatric/behavioral: mood/affect normal, judgement normal Results Laboratory Laboratory Laboratory Tests Test 09/29/19 19:45 White Blood Count 10.35 x10e3/uL (4.8-10.8) Red Blood Count 3.94 x10e6/uL (4.3-5.7) Hemoglobin 10.3 g/dL (14.0-18.0) Hematocrit 32.0 % (38.2-49.6) Mean Corpuscular Volume 81.2 fL (81-99) Mean Corpuscular Hemoglobin 26.1 pg (28-32) Mean Corpuscular Hemoglobin Concent 32.2 g/dL (31-35) Red Cell Distribution Width 16.8 % (11.7-14.4) Platelet Count 250 x10e3/uL (140-360) Neutrophils (%) (Auto) 72.6 % (38.7-80.0) Lymphocytes (%) (Auto) 8.8 % (18.0-39.1) Monocytes (%) (Auto) 5.5 % (4.4-11.3) Eosinophils (%) (Auto) 11.9 % (0.0-6.0) Basophils (%) (Auto) 0.6 % (0.0-1.0) Neutrophils # (Auto) 7.5 (2.1-6.9) Lymphocytes # (Auto) 0.9 (1.0-3.2) Monocytes # (Auto) 0.6 (0.2-0.8) Eosinophils # (Auto) 1.2 (0.0-0.4) Basophils # (Auto) 0.1 (0.0-0.1) Absolute Immature Granulocyte (auto 0.06 x10e3/uL (0-0.1) Sodium Level 121 mmol/L (136-145) Potassium Level 3.5 mmol/L (3.5-5.1) Chloride Level 79 mmol/L (98-107) Carbon Dioxide Level 30 mmol/L (22-29) Anion Gap 15.5 mmol/L (8-16) Blood Urea Nitrogen 31 mg/dL (7-26) Creatinine 1.27 mg/dL (0.72-1.25) Estimat Glomerular Filtration Rate 55 ML/MIN (60-) BUN/Creatinine Ratio 24 (6-25) Glucose Level 105 mg/dL (74-118) Calcium Level 9.4 mg/dL (8.4-10.2) Total Bilirubin 1.1 mg/dL (0.2-1.2) Aspartate Amino Transf (AST/SGOT) 37 IU/L (5-34) Alanine Aminotransferase (ALT/SGPT) 29 IU/L (0-55) Alkaline Phosphatase 171 IU/L (40-150) B-Type Natriuretic Peptide 401.4 pg/mL (0-100) Total Protein 6.5 g/dL (6.5-8.1) Albumin 3.2 g/dL (3.5-5.0) Globulin 3.3 g/dL (2.3-3.5) Albumin/Globulin Ratio 1.0 (0.8-2.0) Lab results reviewed: Yes Laboratory comments pt sodium is 121 Procedures 12 Lead ECG Interpretation Lab Courier: Interpreted by ED physician Rhythm: paced Rate: normal (86) Pacin% capture Clinical Impression: abnormal ECG (electronic ventricular paced rhythm ) Critical Care Time Subsequent provider I assumed direction of critical care for this patient from another provider of my specialty. Assessment & Plan Assessment & Plan Problems: (1) Hyponatremia (2) Edema of both lower legs Assessment & Plan pt with chronic swelling and weeping of bilateral lower extremities and reported sodium of 124 from lab at pcp office, cbc, cmp, bnp ordered to eval for severe anemia, electrolyte abnormality, pt with hyponatremia of 121, i spoke with dr schwab, he states admit to inpatient and restrict fluids to 1.5 liters per day Last Vital Signs Date Time Temp Pulse Resp B/P (MAP) Pulse Ox O2 Delivery O2 Flow Rate FiO2 09/29/19 19:28 98.6 77 20 100/69 97 Home Meds Reported Medications Benzonatate (BENZONATATE) 100 Mg Capsule, 100 MG PO BID, CAP 06/27/19 Acetaminophen With Codeine (TYLENOL WITH CODEINE #3 TABLET) 1 Each Tablet, 300 MG PO Q4HR, TAB 06/27/19 Loperamide Hcl (LOPERAMIDE) 2 Mg Tablet, 2 MG PO, CAP 06/27/19 Loratadine (LORATADINE) 10 Mg Tablet, 10 MG PO DAILY, #30 TAB 06/27/19 Melatonin (MELATONIN) 3 Mg Tablet, 5 MG PO HS, TAB 06/27/19 Fluocinonide (FLUOCINONIDE) 15 Gm Cream..g., DAILY 06/27/19 Ranitidine Hcl (RANITIDINE HCL) 150 Mg Capsule, BID 06/27/19 Spironolactone (SPIRONOLACTONE) 25 Mg Tablet, 25 MG PO DAILY, #60 TAB 06/27/19 Finasteride (FINASTERIDE) 5 Mg Tablet, 5 MG PO DAILY, #30 TAB 06/27/19 Tamsulosin Hcl* (FLOMAX*) 0.4 Mg Cap, 0.4 MG PO DAILY, #30 CAP 06/26/19 Glimepiride (GLIMEPIRIDE) 2 Mg Tablet, 2 MG PO BID, TAB 06/26/19 Metformin Hcl (METFORMIN HCL) 500 Mg Tablet, 500 MG PO BID, #60 TAB 06/26/19 Atorvastatin Calcium (LIPITOR) 20 Mg Tablet, 80 MG DAILY, #30 TAB 06/26/19 Apixaban (Eliquis) 2.5 Mg Tablet, 2.5 MG PO BID 06/26/19 Digoxin (DIGOXIN) 125 Mcg Tablet, 0.125 MG PO DAILY, #30 TAB 06/26/19 Furosemide (LASIX) 20 Mg Tablet, 20 MG PO DAILY, #30 TAB 06/26/19 Metoprolol Tartrate (METOPROLOL TARTRATE) 25 Mg Tablet, 25 MG PO BID, TAB 06/26/19 Losartan Potassium (LOSARTAN POTASSIUM) 25 Mg Tablet, 25 PO DAILY 06/26/19 JASON GOMEZ MD September 29, 2019 20:04
[2019-09-29 20:23] LABS: BASOPHILS # (AUTO) 0.1 (0.0-0.1); BASOPHILS % 0.6 % (0.0-1.0); EOSINOPHILS # (AUTO) 1.2 (0.0-0.4); EOSINOPHILS % 11.9 % (0.0-6.0); HEMOGLOBIN 10.3 g/dL (14.0-18.0); LYMPHOCYTES # (AUTO) 0.9 (1.0-3.2); LYMPHOCYTES % 8.8 % (18.0-39.1); MEAN CORPUSCULAR HEMOGLOBIN 26.1 pg (28-32); MEAN CORPUSCULAR HGB CONC 32.2 g/dL (31-35); MEAN CORPUSCULAR VOLUME 81.2 fL (81-99); MONOCYTES # (AUTO) 0.6 (0.2-0.8); MONOCYTES % 5.5 % (4.4-11.3); NEUTROPHILS # (AUTO) 7.5 (2.1-6.9); NEUTROPHILS % 72.6 % (38.7-80.0); PLATELET COUNT 250 x10e3/uL (140-360); RED BLOOD COUNT 3.94 x10e6/uL (4.3-5.7); RED CELL DISTRIBUTION WIDTH 16.8 % (11.7-14.4)
[2019-09-29 20:37] LABS: ALBUMIN 3.2 g/dL (3.5-5.0); ANION GAP 15.5 mmol/L (8-16); CALCIUM 9.4 mg/dL (8.4-10.2); CREATININE, SERUM 1.27 mg/dL (0.72-1.25); POTASSIUM 3.5 mmol/L (3.5-5.1)
[2019-09-29] MEDS ORDERED: SODIUM CHLORIDE FLUSH 10 ML SYR INJ PRN (21:15)
--- NOTE | 2019-09-29 21:15 | NUR ---
Unable to obtain home medications at this time.
--- OUTSIDE RECORDS SUMMARY | 2019-09-29 21:17 | XMS REPORT ---
Author Author [facility] t [facility] Address 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 Ordering Clinician Indication Dosage Frequency Signature (SIG) Comments Components Source Acetaminophen With Codeine (Tylenol With Codeine #3 Ta blet) 1 Each Tablet Acetaminophen With Codeine (Tylenol With Codeine #3 Tablet) 1 Each Tablet Yes 300 Every 4 Hours [facility] Apixaban (Eliquis) 2.5 Mg Tablet Apixaban (Eliquis) 2.5 Mg Tablet Yes 2.5 Twice A Day [facility] Atorvastatin Calcium (Lipitor) 20 Mg Tablet Atorvastat in Calcium (Lipitor) 20 Mg Tablet Yes 80 Daily [facility] Benzonatate 100 Mg Capsule Benzonatate 100 Mg Capsule Yes 100 Twice A Day [facility] Digoxin 125 Mcg Tablet Digoxin 125 Mcg Tablet Yes .125 Daily [facility] Finasteride 5 Mg Tablet Finasteride 5 Mg Tablet Yes 5 Daily [facility] Fluocinonide 15 Gm Cream..g. Fluocinonide 15 Gm Cream..g. Yes Daily [facility] Furosemide (Lasix) 20 Mg Tablet Furosemide (Lasix) 20 Mg Tablet Yes 20 Daily [facility] Glimepiride 2 Mg Tablet Glimepiride 2 Mg Tablet Yes 2 Twice A Day [facility] Loperamide Hcl (Loperamide) 2 Mg Tablet Loperamide Hcl (Margareth ramide) 2 Mg Tablet Yes 2 [facility] Loratadine 10 Mg Tablet Loratadine 10 Mg Tablet Yes 10 Daily [facility] Losartan Potassium 25 Mg Tablet Losartan Potassium 25 Mg Tablet Yes 25 Daily [facility] Melatonin 3 Mg Tablet Melatonin 3 Mg Tablet Yes 5 Bedtime [facility] Metformin Hcl 500 Mg Tablet Metformin Hcl 500 Mg Tablet Yes 500 Twice A Day [facility] Metoprolol Tartrate 25 Mg Tablet Metoprolol Tartrate 25 Mg Tablet Yes 25 Twice A Day [facility] Ranitidine Hcl 150 Mg Capsule Ranitidine Hcl 150 Mg Capsule Yes Twice A Day [facility] Spironolactone 25 Mg Tablet Spironolactone 25 Mg Tablet Yes 25 Daily [facility] Tamsulosin Hcl (Flomax*) 0.4 Mg Cap Tamsulosin Hcl (Flomax*) 0.4 Mg C ap Yes .4 Daily [facility] Benzonatate 100 Mg Capsule, 100 Mg Oral Benzonatate 100 Mg C apsule, 100 Mg Oral 2019-06-27 00:00:00 No 100 Daily as needed fo r Cough [facility] Procedures Procedure Date / Time Performed Performing Clinician Kartik sosa Computed tomography of chest without contrast 2019-06-29 00:00:0 0 RAMA [facility] CT of abdomen and pelvis without contrast 2019-06-29 00:00:00 TR YVONNE [facility] Computed tomography of brain without radiopaque contrast 00:00:00 JAN MIMS [facility] Computed tomography of cervical spine without contrast 06-26 00:00:00 JAN MIMS [facility] Encounters Start Date/Time End Date/Time Encounter Type [facility] Encounter ID Source 2019-06-27 22:22:00 2019-07-01 18:51:00 Discharged Inpatient 1 RAMA [facility] [id number] [facility] Results Test Description Test Time Test Comments Results Result Comments Source Bedside Glucose 2019-07-01 16:33:00 Test Item Bedside Glucose (test code = 17394-4) 232 70-120 Meter ID: [id number]odium Level 2019-07-01 07:09:00* Test Item Value Reference Range Interpretation Comments Sodium Level (test code = 2951-2) 134 136-145 [facility] HospitalPotassium Jmdmh3211-33-00 07:09:00* Test Item Value Reference Range Interpretation Comments Potassium Level (test code = 2823-3) 3.9 3.5-5.1 [facility] HospitalChloride Jwwlj3091-96-09 07:09:00* Test Item Value Reference Range Interpretation Comments Chloride Level (test code = 2075-0) 102 98-107 [facility] HospitalCarbon Dioxide Vyjmx8270-89-35 07:09:00* Test Item Value Reference Range Interpretation Comments Carbon Dioxide Level (test code = 2028-9) 21 22-29 [facility] HospitalAnion Yis8572-14-13 07:09:00* Test Item Value Reference Range Interpretation Comments Anion Gap (test code = 69372-6) 14.9 8-16 [facility] HospitalBlood Urea Ekpqwubz3867-22-08 07:09:00* Test Item Value Reference Range Interpretation Comments Blood Urea Nitrogen (test code = 3094-0) 36 7-26 [facility] HospitalCreatinine2020-02-13 07:09:00* Test Item Value Reference Range Interpretation Comments Creatinine (test code = 2160-0) 1.29 0.72-1.25 [facility] HospitalBUN/Creatinine Cxglg0778-25-78 07:09:00* Test Item Value Reference Range Interpretation Comments BUN/Creatinine Ratio (test code = 3097-3) 28 6-25 [facility] HospitalEstimat Glomerular Filtration Rate 2019-07-01 07:09:00* Test Item Value Reference Range Interpretation Comments Estimat Glomerular Filtration Rate (test code = 808834974) 54 >60 Ranges were taken from the National Kidney Disease Education Program and the [facility] literature.Reference ranges:60 or greater: Zoxewf49-11 ( for 3 consecutive months): Chronic kidney disease 15 or less: Kidney failureHouston Methodist Baytown HospitalGlucose Zefvl3937-12-88 07:09:00* Test Item Value Reference Range Interpretation Comments Glucose Level (test code = ZFC6113) 98 74-118 [facility] HospitalCalcium Qyvjz4520-80-40 07:09:00* Test Item Value Reference Range Interpretation Comments Calcium Level (test code = 09726-2) 9.2 8.4-10.2 [facility] HospitalWhite Blood Ydebx8188-73-27 06:47:00* Test Item Value Reference Range Interpretation Comments White Blood Count (test code = 6690-2) 12.00 4.8-10.8 [facility] HospitalRed Blood Gawtk5996-99-82 06:47:00* Test Item Value Reference Range Interpretation Comments Red Blood Count (test code = 789-8) 3.42 4.3-5.7 [facility] HospitalHemoglobin2020-02-13 06:47:00* Test Item Value Reference Range Interpretation Comments Hemoglobin (test code = 76179-6) 9.1 14.0-18.0 [facility] HospitalHematocrit2020-02-13 06:47:00* Test Item Value Reference Range Interpretation Comments Hematocrit (test code = 4544-3) 28.3 38.2-49.6 [facility] HospitalMean Corpuscular Skvgag7935-16-60 06:47:00* Test Item Value Reference Range Interpretation Comments Mean Corpuscular Volume (test code = 787-2) 82.7 81-99 [facility] HospitalMean Corpuscular Bynewvzven4247-63-52 06:47:00* Test Item Value Reference Range Interpretation Comments Mean Corpuscular Hemoglobin (test code = 785-6) 26.6 28-32 [facility] HospitalMean Corpuscular Hemoglobin Concent 2019-07-01 06:47:00* Test Item Value Reference Range Interpretation Comments Mean Corpuscular Hemoglobin Concent (test code = 786-4) 32.2 31-35 [facility] HospitalRed Cell Distribution Csswc9255-71-25 06:47:00* Test Item Value Reference Range Interpretation Comments Red Cell Distribution Width (test code = 32260-8) 15.5 11.7 -14.4 [facility] HospitalPlatelet Ynuyp1563-40-81 06:47:00* Test Item Value Reference Range Interpretation Comments Platelet Count (test code = 777-3) 303 140-360 [facility] HospitalNeutrophils (%) (Auto)2019-07-01 06:47:00 * Test Item Value Reference Range Interpretation Comments Neutrophils (%) (Auto) (test code = 19973-4) 64.0 38.7-80.0 [facility] HospitalLymphocytes (%) (Auto)2019-07-01 06:47:00 * Test Item Value Reference Range Interpretation Comments Lymphocytes (%) (Auto) (test code = 736-9) 16.6 18.0-39.1 [facility] HospitalMonocytes (%) (Auto)2019-07-01 06:47:00* Test Item Value Reference Range Interpretation Comments Monocytes (%) (Auto) (test code = 5905-5) 10.3 4.4-11.3 [facility] HospitalEosinophils (%) (Auto)2019-07-01 06:47:00 * Test Item Value Reference Range Interpretation Comments Eosinophils (%) (Auto) (test code = 713-8) 7.2 0.0-6.0 [facility] HospitalBasophils (%) (Auto)2019-07-01 06:47:00* Test Item Value Reference Range Interpretation Comments Basophils (%) (Auto) (test code = 706-2) 0.8 0.0-1.0 [facility] HospitalIM GRANULOCYTES %2019-07-01 06:47:00* Test Item Value Reference Range Interpretation Comments IM GRANULOCYTES % (test code = IM GRANULOCYTES %) 1.1 0.0- 1.0 [facility] HospitalNeutrophils # (Auto)2019-07-01 06:47:00* Test Item Value Reference Range Interpretation Comments Neutrophils # (Auto) (test code = 751-8) 7.7 2.1-6.9 [facility] HospitalLymphocytes # (Auto)2019-07-01 06:47:00* Test Item Value Reference Range Interpretation Comments Lymphocytes # (Auto) (test code = 18707-3) 2.0 1.0-3.2 [facility] HospitalMonocytes # (Auto)2019-07-01 06:47:00* Test Item Value Reference Range Interpretation Comments Monocytes # (Auto) (test code = 742-7) 1.2 0.2-0.8 [facility] HospitalEosinophils # (Auto)2019-07-01 06:47:00* Test Item Value Reference Range Interpretation Comments Eosinophils # (Auto) (test code = 711-2) 0.9 0.0-0.4 [facility] HospitalBasophils # (Auto)2019-07-01 06:47:00* Test Item Value Reference Range Interpretation Comments Basophils # (Auto) (test code = 704-7) 0.1 0.0-0.1 [facility] HospitalAbsolute Immature Granulocyte (auto 2019-07-01 06:47:00* Test Item Value Reference Range Interpretation Comments Absolute Immature Granulocyte (auto (kayden t code = Absolute Immature Granulocyte (auto) 0.13 0-0.1 [facility] HospitalFolate2020-02-12 17:21:00* Test Item Value Reference Range Interpretation Comments Folate (test code = 2284-8) 3.7 >3.0 A serum folate concentration of less than 3.1 ng/mL isconsidered to represent cl inical deficiency.Performed at: - [facility] [id number] Director: Alex Alcantar MD, Phone: [phone] Methodist Baytown HospitalCT CHEST EQ2808-92-07 13:46:00 [place] [address] Patient Name: JAYLON VALDIVIA MR #: [id number] : 1940 Age/Sex: 79/M Req #: [id number] Adm Physician: SORAIDA ONTIVEROS MD Ordered by: SORAIDA ONTIVEROS MD Report #: [id number] Location: MED/SURG Room/Bed: [facility] Procedure: [id number] CT/CT CHEST WO Exam Date: 06/29/19 Exam [...] COPY TO: SORAIDA ONTIVEROS MD CT ABDOMEN/PELVIS [id number] 13:46:00 [place] [address] Patient Name: JAYLON VALDIVIA MR #: [id number] : 1940 Age/Sex: 79/M Req #: [id number] Adm Physician: SORAIDA ONTIVEROS MD Ordered by: SORAIDA ONTIVEROS MD Report #: [id number] Location: MED/SURG Room/Bed: [facility] Procedure: [id number] CT/CT ABDOMEN/PELVIS WO Exam Date: 06/29/19 Exam [...] COPY TO: SORAIDA ONTIVEROS MD Vitamin B12 Lpwxg4442-38-02 07:24:00* Test Item Value Reference Range Interpretation Comments Vitamin B12 Level (test code = 08730-7) 791 213-816 [facility] HospitalThyroid Stimulating Hormone (TSH) 2019-06-28 07:24:00* Test Item Value Reference Range Interpretation Comments Thyroid Stimulating Hormone (TSH) (test code = 60241-6) 0.444 0.350-4.940 [facility] HospitalIron Mzztk2063-40-07 07:03:00* Test Item Value Reference Range Interpretation Comments Iron Level (test code = 2498-4) 20 65-175 [facility] HospitalTotal Iron Binding Kviaualw2511-12-94 07:03:00* Test Item Value Reference Range Interpretation Comments Total Iron Binding Capacity (test code = 2500-7) 305 261-4 78 [facility] HospitalPercent Iron Voiecsreth4726-98-90 07:03:00* Test Item Value Reference Range Interpretation Comments Percent Iron Saturation (test code = 2502-3) 7 15-50 [facility] HospitalTransferrin2020-02-10 07:03:00* Test Item Value Reference Range Interpretation Comments Transferrin (test code = 3034-6) 218 174-364 [facility] HospitalDigoxin Scjqa5726-55-40 06:53:00* Test Item Value Reference Range Interpretation Comments Digoxin Level (test code = 80708-4) 0.84 0.8-2.0 [facility] HospitalHemoglobin A1c Cvncszs1307-92-16 06:51:00 * Test Item Value Reference Range Interpretation Comments Hemoglobin A1c Percent (test code = Hemoglobin A1c Percent) 5.5 4.0-7.0 [facility] HospitalCreatine Kinase VW5990-97-02 14:57:00* Test Item Value Reference Range Interpretation Comments Creatine Kinase MB (test code = 26644-8) 0.70 0-5.0 [facility] HospitalTroponin I0353-37-23 14:57:00* Test Item Value Reference Range Interpretation Comments Troponin I (test code = OSS5605) 0.051 0-0.300 [facility] HospitalCreatine Jqtmry4235-81-22 14:50:00* Test Item Value Reference Range Interpretation Comments Creatine Kinase (test code = 2157-6) 42 30-200 [facility] HospitalTotal Zngvkrsjq7766-17-96 07:33:00* Test Item Value Reference Range Interpretation Comments Total Bilirubin (test code = 1975-2) 0.7 0.2-1.2 [facility] HospitalAspartate Amino Transf (AST/SGOT) 2019-06-27 07:33:00* Test Item Value Reference Range Interpretation Comments Aspartate Amino Transf (AST/SGOT) (test code = Aspartate Amino Transf (AST/SGOT)) 16 5-34 [facility] HospitalAlanine Aminotransferase (ALT/SGPT) 2019-06-27 07:33:00* Test Item Value Reference Range Interpretation Comments Alanine Aminotransferase (ALT/SGPT) (test code = 1742-6) 15 0-55 [facility] HospitalTotal Ionnbwg8768-23-28 07:33:00* Test Item Value Reference Range Interpretation Comments Total Protein (test code = 2885-2) 6.5 6.5-8.1 [facility] HospitalAlbumin2020-02-09 07:33:00* Test Item Value Reference Range Interpretation Comments Albumin (test code = 1751-7) 3.2 3.5-5.0 [facility] HospitalGlobulin2020-02-09 07:33:00* Test Item Value Reference Range Interpretation Comments Globulin (test code = 00734-9) 3.3 2.3-3.5 [facility] HospitalAlbumin/Globulin Qqmku5999-77-79 07:33:00 * Test Item Value Reference Range Interpretation Comments Albumin/Globulin Ratio (test code = 1759-0) 1.0 0.8-2.0 [facility] HospitalAlkaline Xfetpumfnkd6345-61-92 07:33:00* Test Item Value Reference Range Interpretation Comments Alkaline Phosphatase (test code = 6768-6) 119 40-150 [facility] HospitalTriglycerides Kvazb1736-70-78 07:33:00* Test Item Value Reference Range Interpretation Comments Triglycerides Level (test code = 2571-8) 79 0-149 [facility] HospitalCholesterol Eiwxw7216-31-69 07:33:00* Test Item Value Reference Range Interpretation Comments Cholesterol Level (test code = 2093-3) 70 0-199 Less than 200 mg/dL Low Ccpy346 - 239 mg/dL Borderline Nygk502 m g/dl and greater High Risk [facility] HospitalLDL Eoecxeuwqwo1577-13-22 07:33:00* Test Item Value Reference Range Interpretation Comments LDL Cholesterol (test code = 2089-1) 36 60-130 [facility] HospitalHDL Zffladdkqec7970-63-35 07:33:00* Test Item Value Reference Range Interpretation Comments HDL Cholesterol (test code = 2085-9) 18 40-60 [facility] HospitalCholesterol/HDL Qknmb3458-56-18 07:33:00 * Test Item Value Reference Range Interpretation Comments Cholesterol/HDL Ratio (test code = 9830-1) 3.9 3.9-4.7 [facility] HospitalUrine UFU6771-15-58 14:26:00* Test Item Value Reference Range Interpretation Comments Urine WBC (test code = 5821-4) 0-5 0-5 [facility] HospitalUrine QLP0611-68-04 14:26:00* Test Item Value Reference Range Interpretation Comments Urine RBC (test code = 24271-5) 0-5 0-5 [facility] HospitalUrine Chhgxxlj0475-16-27 14:26:00* Test Item Value Reference Range Interpretation Comments Urine Bacteria (test code = 95056-6) FEW NONE [facility] HospitalUrine Epithelial Ykerj9746-47-16 14:26:00 * Test Item Value Reference Range Interpretation Comments Urine Epithelial Cells (test code = 96510-6) FEW NONE [facility] HospitalUrine Tcaie2037-00-90 14:06:00* Test Item Value Reference Range Interpretation Comments Urine Color (test code = 5778-6) YELLOW YELLOW [facility] HospitalUrine Yoijflk0346-86-36 14:06:00* Test Item Value Reference Range Interpretation Comments Urine Clarity (test code = 99863-4) CLEAR CLEAR [facility] HospitalUrine Specific Hrvknli6960-56-32 14:06:00 * Test Item Value Reference Range Interpretation Comments Urine Specific Magness (test code = 5811-5) 1.015 1.010-1.02 5 [facility] HospitalUrine mQ2429-78-94 14:06:00* Test Item Value Reference Range Interpretation Comments Urine pH (test code = 40261-2) 5 5-7 [facility] HospitalUrine Leukocyte Odlouyms4130-39-32 14:06:00* Test Item Value Reference Range Interpretation Comments Urine Leukocyte Esterase (test code = 5799-2) NEGATIVE NEGATIVE [facility] HospitalUrine Gfienbc1549-85-10 14:06:00* Test Item Value Reference Range Interpretation Comments Urine Nitrite (test code = 28447-2) NEGATIVE NEGATIVE [facility] HospitalUrine Oqrjmmi9215-27-67 14:06:00* Test Item Value Reference Range Interpretation Comments Urine Protein (test code = 5804-0) NEGATIVE NEGATIVE [facility] HospitalUrine Glucose (UA)2019-06-26 14:06:00* Test Item Value Reference Range Interpretation Comments Urine Glucose (UA) (test code = 2349-9) NEGATIVE NEGATIVE [facility] HospitalUrine Aruszew2852-44-93 14:06:00* Test Item Value Reference Range Interpretation Comments Urine Ketones (test code = 49106-3) NEGATIVE NEGATIVE [facility] HospitalUrine Jrikanqtqbwh1148-74-82 14:06:00* Test Item Value Reference Range Interpretation Comments Urine Urobilinogen (test code = 77393-4) 0.2 0.2-1 [facility] HospitalUrine Wbkkrrfdb6054-90-13 14:06:00* Test Item Value Reference Range Interpretation Comments Urine Bilirubin (test code = 1978-6) NEGATIVE NEGATIVE [facility] HospitalUrine Bpkoh4964-52-24 14:06:00* Test Item Value Reference Range Interpretation Comments Urine Blood (test code = 44546-6) NEGATIVE NEGATIVE [facility] EA1011-35-57 12:16:00 [facility] [address] [place] [address] Patient Name: JAYLON VALDIVIA MR #: [id number] : 1940 Age/Sex: 79/M Req #: [id number] Adm Physician: Ordered by: JAN MIMS MD Report #: [id number] Location: ER Room/Bed: Procedure: [id number] CT/ CT CERVICAL SPINE WO Exam Date: [...] 1238 Transcribed By: ELLIS on 06/26/19 1238 TIP INSERTER Y TO: JAN MIMS MD CT BRAIN HD9618-11-02 12:16:00 [place] [address] Patient Name: JAYLON VALDIVIA MR #: [id number] : 1940 Age/Sex: 79/M Req #: [id number] Adm Physician: Ordered by: JAN MIMS MD Report #: [id number] Location: ER Room/Bed: Procedure: [id number] CT/ CT BRAIN WO Exam Date: 06/26/19 [...] JAN FROST MD CHEST SINGLE (PORTABLE)2019-06-26 12:01:00 [place] [address] Patient Name: JAYLON VALDIVIA MR #: [id number] : 1940 Age/Sex: 79/M Req #: [id number] Adm Physician: Ordered by: JAN MIMS MD Report #: [id number] Location: ER Room/Bed: Procedure: [id number] DX/ CHEST SINGLE (PORTABLE) Exam Date: 06/26/19 [...] COPY TO: JAN MIMS MD SHOULDER RIGHT CMMFLSBB5473-98-28 12:00:[address], [place] [address] Patient Name: JAYLON VALDIVIA MR #: [id number] : 1940 Age/Sex: 79/M Req #: [id number] Adm Physician: Ordered by: JAN MIMS MD Report #: [id number] Location: ER Room/Bed: Procedure: [id number] DX/ SHOULDER RIGHT COMPLETE Exam Date: 06/26/19 [...] TO: JAN MIMS MD PELVIS AP 1-2 HNRGO9157-08-59 12:00:[address] [address] Patient Name: JAYLON VALDIVIA MR #: [id number] : 1940 Age/Sex: 79/M Req #: [id number] Adm Physician: Ordered by: JAN MIMS MD Report #: [id number] Location: ER Room/Bed: Procedure: [id number] DX/ PELVIS AP 1-2 VIEWS Exam Date: [...] COPY TO: JAN BROWN MD B-Type Natriuretic Npmjaqx4855-18-82 11:48:00* Test Item Value Reference Range Interpretation Comments B-Type Natriuretic Peptide (test code = 79131-5) 207.4 0-100 [facility] HospitalMagnesium Untmt8731-05-43 11:43:00* Test Item Value Reference Range Interpretation Comments Magnesium Level (test code = 55504-5) 1.6 1.3-2.1 [facility] HospitalActivated Partial Thromboplast Time 2019-06-26 11:31:00* Test Item Value Reference Range Interpretation Comments Activated Partial Thromboplast Time (test code = 79066-7) 44.5 23.8-35.5 [facility] HospitalProthrombin Pabh2418-72-28 11:30:00* Test Item Value Reference Range Interpretation Comments Prothrombin Time (test code = 5902-2) 17.7 11.9-14.5 [facility] HospitalProthromb Time International Ratio 2019-06-26 11:30:00* Test Item Value Reference Range Interpretation Comments Prothromb Time International Ratio (test code = 6301-6) 1.36 Oral Anticoagulant Therapy INR Values:1. Low Intensity Therapy 1.5 - 2.02 . Moderate Intensity Therapy 2.0 - 3.03. High Intensity Therapy(1) 2.5 - 3. 54. High Intensity Therapy(2) 3.0 - 4.05. Panic Value INR > 5.0 [facility]
--- NOTE | 2019-09-29 22:04 | NUR ---
Patient resting with no distress noted at this time. Call light remains at bedside.
[2019-09-30 04:20] LABS: BASOPHILS # (AUTO) 0.1 (0.0-0.1); BASOPHILS % 0.7 % (0.0-1.0); EOSINOPHILS # (AUTO) 0.9 (0.0-0.4); EOSINOPHILS % 8.3 % (0.0-6.0); HEMATOCRIT 31.2 % (38.2-49.6); HEMOGLOBIN 10.1 g/dL (14.0-18.0); LYMPHOCYTES # (AUTO) 0.9 (1.0-3.2); LYMPHOCYTES % 7.9 % (18.0-39.1); MEAN CORPUSCULAR HGB CONC 32.4 g/dL (31-35); MEAN CORPUSCULAR VOLUME 80.4 fL (81-99); MONOCYTES # (AUTO) 0.8 (0.2-0.8); MONOCYTES % 7.2 % (4.4-11.3); NEUTROPHILS # (AUTO) 8.6 (2.1-6.9); NEUTROPHILS % 75.5 % (38.7-80.0); PLATELET COUNT 237 x10e3/uL (140-360); RED BLOOD COUNT 3.88 x10e6/uL (4.3-5.7); RED CELL DISTRIBUTION WIDTH 16.9 % (11.7-14.4)
[2019-09-30 04:34] LABS: ALBUMIN 3.1 g/dL (3.5-5.0); ALBUMIN/GLOBULIN RATIO 1.1 (0.8-2.0); ANION GAP 15.5 mmol/L (8-16); CALCIUM 9.7 mg/dL (8.4-10.2); CREATININE, SERUM 1.21 mg/dL (0.72-1.25); POTASSIUM 3.5 mmol/L (3.5-5.1)
--- NOTE | 2019-09-30 06:55 | NUR ---
Report to LAURENT Sampson. Patient resting with no distress.
[2019-09-30] MEDS ORDERED: FUROSEMIDE INJ 10 MG/ML 2 ML VIAL IV ONE (08:45)
[2019-09-30] MEDS ORDERED: ONDANSETRON HCL INJ 2MG/ML 2ML 2 MG/ML VIAL IV PRN (08:45)
[2019-09-30] MEDS: APIXAB 2.5 MG TABLET PO SCH ×2 (09:11→17:41)
[2019-09-30 10:12] LABS: CLARITY,URINE CLEAR (CLEAR); COLOR,URINE YELLOW (YELLOW)
[2019-09-30 10:13] LABS: BILIRUBIN,URINE NEGATIVE (NEGATIVE); KETONES,URINE NEGATIVE (NEGATIVE); LEUKOCYTE ESTERASE ,URINE SMALL (NEGATIVE); NITRITE,URINE NEGATIVE (NEGATIVE); PROTEIN,URINE DIPSTICK NEGATIVE (NEGATIVE); URINE UROBILINOGEN 0.2 mg/dL (0.2 - 1)
--- NOTE | 2019-09-30 10:14 | Diagnostic Imaging Report ---
EXAMINATION: CHEST SINGLE (PORTABLE) INDICATION: CHF COMPARISON: Chest radiograph 06/26/2019 FINDINGS: LINES/TUBES:Left chest AICD. EKG leads overlie the chest. LUNGS:The lungs are well-inflated. There is perihilar fullness and indistinctness of the pulmonary vasculature. There is left basilar opacity silhouetting the left roosevelt diaphragm. PLEURA:Small left pleural effusion. No pneumothorax. MEDIASTINUM:Cardiomegaly. Atherosclerotic calcifications of the thoracic aorta. BONES/SOFT TISSUES:No acute osseous injury. ABDOMEN:No free air under the diaphragm. IMPRESSION: Cardiomegaly and mild pulmonary edema. Small left pleural effusion. Left basilar patchy opacities, most likely subsegmental atelectasis. Signed by: Aleksey Bustillos MD on 09/30/2019 10:10 AM
[2019-09-30 10:26] LABS: BACTERIA,URINE RARE /HPF; EPITHELIAL CELLS,URINE RARE /LPF; RBC,URINE 0-5 /HPF (0-5); WBC,URINE (MAN) 0-5 /HPF (0-5)
[2019-09-30 10:43] LABS: CREATININE,URINE RANDOM 72.08 mg/dL (63-166)
[2019-09-30 10:45] LABS: SODIUM,URINE < 20 mmol/L
[2019-09-30] MEDS: INSULIN LISPRO 100 UNIT/1 ML 3ML VIAL SQ SCH ×3 (11:53→21:00)
--- NOTE | 2019-09-30 15:43 | Diagnostic Imaging Report ---
EXAM: Renal Ultrasound INDICATION: ^RENAL FAILURE COMPARISON: None TECHNIQUE: Transverse and longitudinal images of the kidneys and bladder were obtained. FINDINGS: Right Kidney: Length: 11.1 cm Appearance: Normal echogenicity. Collecting system: No hydronephrosis Stones: None Cyst/Mass: None Left Kidney: Length: 7.5 cm Appearance: Normal echogenicity. Collecting system: No hydronephrosis Stones: None Cyst/Mass: None Bladder: No mass or calculi. Ureteral jets visualized. Prevoid volume estimate of 186 cc. The prostate measures 3.0 x 2.8 x 4.3 cm with volume estimate of 18.3 cc. IMPRESSION: No hydronephrosis or renal calculi. Signed by: Aleksey Bustillos MD on 09/30/2019 3:39 PM
[2019-09-30] MEDS: FUROSEMIDE INJ 10 MG/ML 2 ML VIAL IV SCH ×2 (17:36→21:39)
--- NOTE | 2019-09-30 19:40 | History and Physical ---
PRIMARY CARE DOCTOR: Max Venegas MD. CHIEF COMPLAINT: Hyponatremia. HISTORY OF PRESENT ILLNESS: This is an 79-year-old male with multiple medical problems. He was asked to come in because of low-sodium per report, the sodium level is 124 here, on admission is 121. The patient is now confused. The patient also has been dealing with leg swelling for the last two weeks despite being on Lasix at home. The swelling is causing itching and the patient has been scratching. The patient denies any chest pain. No shortness of breath. No nausea, vomiting. PAST MEDICAL AND SURGICAL HISTORY: 1. 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 2. Systolic CHF with EF less than 20%. 3. AICD status. 4. Chronic atrial fibrillation, on Eliquis. 5. Chronic kidney disease stage 3 due to diabetes. 6. Hypertension. 7. Dyslipidemia. 8. Benign prostatic hypertrophy. 9. Coronary stent. MEDICATIONS: Please see medication reconciliation form. ALLERGIES: TO PENICILLIN. SOCIAL HISTORY: He does not smoke. FAMILY HISTORY: Hypertension. REVIEW OF SYSTEMS: A 10-point review of system obtained and nothing else is significant other than what is stated in HPI. PHYSICAL EXAMINATION: VITAL SIGNS: Temperature 98.8, pulse 87, respiratory rate 20, blood pressure 104/82. GENERAL: No acute distress. SKIN: No rash. HEENT: Anicteric. Oropharynx is clear. LUNGS: A few crackles at the bases. HEART: Regular rate and rhythm. Normal S1, S2. ABDOMEN: Soft, nondistended, and nontender. Normoactive bowel sounds. MUSCULOSKELETAL: Painless range of motion in joints. NEUROLOGIC: Alert and oriented x3. Cranial nerves 2 through 12 grossly intact. PSYCHIATRIC: No hallucination. LABORATORY DATA: Laboratory kim sodium 121, creatinine 1.21, sugar 101. White count 11, hemoglobin 10. Chest x-ray, likely atelectasis. EKG shows a paced rhythm. ASSESSMENT AND PLAN: 1. Hyponatremia, severe but asymptomatic. We will check TSH. We will check urine sodium and consult Nephrology. 2. Significant bilateral lower extremity edema. Given that his blood pressure is borderline. We will continue IV Lasix 20 mg q.8 for now until Nephrology sees the patient. 3. Chronic kidney disease stage 3 due to diabetes. We will get a renal ultrasound and also put him on sliding scale. 4. Chronic atrial fibrillation. The patient will be on renal dose Eliquis for stroke prophylaxis. 5. Benign prostatic hypertrophy. We will continue Flomax. 6. Compensated severe systolic heart failure with ejection fraction of less than 20%. 7. Gastrointestinal/deep vein thrombosis prophylaxis, on Eliquis. Yiching MD MERA Keys/ANN /[id number] cc: [facility]
--- NOTE | 2019-09-30 20:13 | NUR ---
Received report from ER nurse.
[2019-09-30 20:35] VITALS: BP 108/87
--- NOTE | 2019-09-30 20:35 | NUR ---
Patient arrived to floor via w/c.
[2019-09-30] MEDS: ATORVASTATIN 40 MG TAB PO SCH (21:00)
[2019-09-30] MEDS: TAMSULOSIN HCL 0.4 MG CAP PO SCH (21:00)
[2019-09-30] MEDS: MELATONIN 5 MG TABLET PO SCH (21:00)
[2019-10-01] VITALS (7 sets, daily range): BP systolic 101–111; BP diastolic 60–79
--- NOTE | 2019-10-01 | NUR ---
Admit and assessment completed. Patient had karlie area to sacrum. Neida pad was applied to sacrum.
[2019-10-01] MEDS: ACETAMINOPHEN/CODEINE 300MG - 30MG TAB PO PRN ×2 (02:14→21:54)
--- NOTE | 2019-10-01 02:30 | NUR ---
Patient c/o LOVING. Given tylenol as ordered by . Continue monitor.
[2019-10-01] MEDS: FUROSEMIDE INJ 10 MG/ML 2 ML VIAL IV SCH (06:00)
--- NOTE | 2019-10-01 06:02 | Diagnostic Imaging Report ---
EXAMINATION: CHEST SINGLE (PORTABLE) INDICATION: Shortness of breath COMPARISON: 09/30/2019 FINDINGS: AP view TUBES and LINES: Unchanged left mechanical cardiac device. LUNGS: No focal consolidation. Fullness of the pulmonary vasculature. PLEURA: Roll small left pleural effusion. HEART AND MEDIASTINUM: Stable cardiomegaly. BONES AND SOFT TISSUES: No acute osseous lesion. Sternotomy wires. UPPER ABDOMEN: No free air under the diaphragm. IMPRESSION: No interval change. Moderate cardiomegaly with pulmonary venous congestion and small left pleural effusion. Signed by: Lavon Duenas MD on 10/01/2019 5:59 AM
[2019-10-01 06:07] LABS: BASOPHILS # (AUTO) 0.1 (0.0-0.1); BASOPHILS % 0.7 % (0.0-1.0); EOSINOPHILS # (AUTO) 1.1 (0.0-0.4); EOSINOPHILS % 9.6 % (0.0-6.0); HEMATOCRIT 31.6 % (38.2-49.6); HEMOGLOBIN 10.3 g/dL (14.0-18.0); LYMPHOCYTES # (AUTO) 1.5 (1.0-3.2); MEAN CORPUSCULAR HGB CONC 32.6 g/dL (31-35); MEAN CORPUSCULAR VOLUME 79.8 fL (81-99); MONOCYTES % 8.1 % (4.4-11.3); NEUTROPHILS % 68.2 % (38.7-80.0); PLATELET COUNT 230 x10e3/uL (140-360); RED BLOOD COUNT 3.96 x10e6/uL (4.3-5.7)
[2019-10-01 06:26] LABS: ANION GAP 16.6 mmol/L (8-16); BLOOD UREA NITROGEN 31 mg/dL (7-26); BUN/CREATININE RATIO 30 (6-25); CALCIUM 10.1 mg/dL (8.4-10.2); CARBON DIOXIDE 29 mmol/L (22-29); CHLORIDE 84 mmol/L (98-107); CREATININE, SERUM 1.05 mg/dL (0.72-1.25); EST GLOMERULAR FILTRATION RATE > 60 ML/MIN (60-); GLUCOSE 72 mg/dL (74-118); MAGNESIUM 1.7 MG/DL (1.3-2.1); POTASSIUM 3.6 mmol/L (3.5-5.1); SODIUM 126 mmol/L (136-145)
--- NOTE | 2019-10-01 06:28 | NUR ---
Patient resting quitly with no c/o at this time. Continue monitor.
[2019-10-01] MEDS: INSULIN LISPRO 100 UNIT/1 ML 3ML VIAL SQ SCH ×4 (07:30→21:00)
[2019-10-01] MEDS: APIXAB 2.5 MG TABLET PO SCH ×2 (08:46→18:09)
[2019-10-01] MEDS ORDERED: SODIUM CHLORIDE 0.9% 1000ML 1,000 ML IV ONE (10:15)
--- NOTE | 2019-10-01 12:28 | NUR ---
Patient resting up in bed, Alert with no distress, Wound care nurse in room changing dressing, Dr Lebron and Dr Merchant had rounds, on IV fluids and fluid restriction 1.2ltr/day patient aware about it. keep monitoring, his at bed side
[2019-10-01] MEDS ORDERED: ONDANSETRON HCL 4 MG ORAL DISINTEGRATING TAB PO PRN (13:00)
[2019-10-01] MEDS: METOPROLOL SUCCINATE 25 MG TAB XL PO SCH ×2 (13:15→18:09)
--- NOTE | 2019-10-01 15:13 | NUR ---
WOUND CARE SCREENING CONSULT FOR 79 YO MALE. HX OF PRESENT EDEMA SAMSON LOWER LEGS; HYPONATREMIA PAULO 16 ON MODERATE PUP STATUS AND INTERVENTIONS LABS: WBC- 11.78 HGB- 10.3 GLUCOSE-72 SURFACE: REGULAR VISCO MATTRESS. SKIN ASSESSMENT COMPLETE PATIENT PRESENTS WITH: 1)STAGE II PRESSURE ULCER MEASURIN.8 CM X 0.5 CM X 0.1 CM; RED BLANCHABLE PERIWOUND. MINIMAL SEROUS DRAINAGE. 2)MULTIPLE HEALING SCABS TO BILATERAL UPPER EXTREMITIES DUE TO PT SCRACHING EXTREMITIES. 3)PITTING EDEMA PRESENT TO BILATERAL LOWER EXTREMITIES WITH MULTIPLE HEALING SCABS DUE TO PT SCRATCHING EXTREMITIES. RECOMMENDATIONS: NURSING TO CLEAN STAGE II PRESSURE ULCER WITH NORMAL SALINE; PAT DRY WITH 4X4 GAUZE, APPLY VENELEX AND COVER WITH 4X4 GAUZE DAILY. NURSING TO APPLY BETADINE TO MULTIPLE HEALING SCABS TO BILATERAL UPPER EXTREMITIES AND LIGHTLY SECURE WITH KERLIX DAILY. NURSING TO CLEAN BILATERAL LOWER EXTREMITIES HEADINGS SCABS WITH NORMAL SALINE; PAT DRY WITH 4X4 GAUZE, APPLY ABD PADS AND VERY LIGHTLY SECURE WITH KERLIX ONLY DAILY. NURSING TO CONTINUE TO MONITOR PATIENT AND KEEP SKIN CLEAN AND FREE FROM STOOL OR IRRITATING MOISTURE AND CONTINUE TO FOLLOW MODERATE PUP INTERVENTIONS DAILY. NURSING TO CONTINUE REPOSITION AND TO ENCOURAGE PT TO REPOSITION SIDE TO SIDE EVERY TWO HOURS. NURSING TO CONTINUE TO OFFLOAD FEET AND HEELS AT ALL TIMES WITH PILLOW SUSPENSION WHEN IN BED. NURSING TO APPLY AN ALTERNATING PRESSURE MATTRESS. NURSING TO CONTINUE TO ASSIST PT OUT OF BED DURING NUTRITIONAL MEALS MUCH TOLERATED. NURSING TO CONSULT WOUND CARE NEEDED. Addendum: 10/01/19 at 1518 by Carmina Hudson RN Amended: Links added.
--- NOTE | 2019-10-01 16:03 | NUR ---
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 Ht: 70 in Wt:170 lbs (per pt) BMI: 24.4 kg/m2 IBW:[address] Assessment: (10/01/19) Chart reviewed. Labs and meds reviewed. Pt is an 79 year old male admitted with edema of both lower legs and hyponatremia. Spoke to pt and family member. Pt and family member report pt has been eating about 50% of his meals prior to admission for >1 month. At time of visit, pt stated his appetite is getting better and it is noted that pt consumed 75% of his meals today. Pt stated his weight has been stable at 170 lbs. Pt currently has a weight of 117 lbs in chart, but per observation this does not appear accurate. No N/V/D/C or chewing/swallowing issues. Will continue to monitor Current Diet: cardiac Malnutrition Evaluation (10/01/19) The patient does not meet criteria for a specified degree of malnutrition at this time. Will re-evaluate at follow-up as appropriate. Diet Education Needs Assessment: RD provided pt with diet education materials regarding following a low sodium diet. Pts family member stated they were already aware of the diet and did not have any questions at time of visit. Nutrition Care Level: low Signed: Melody Walker, RD, LD
--- NOTE | 2019-10-01 18:04 | Consultation ---
DATE OF CONSULTATION: 10/01/2019 Consultation Note REASON FOR CONSULTATION: Hyponatremia. HISTORY OF PRESENT ILLNESS: An 79-year-old gentleman, poor historian, follows up with Dr. Pat, has history of coronary artery disease, status post bypass surgery. History of AICD placement, history of ventricular aneurysmectomy, prior VA, hyperlipidemia, BPH, history of PCI and stenting coronary vessels, history of type 2 diabetes, history of chronic atrial flutter, ejection fraction of 20% who presented with weakness, subsequently admitted. Renal consult for management of lower extremity edema and hyponatremia. He is currently awake, alert, lying supine, slow to gather his thoughts and answer. He does not recollect his primary care doctor's name. He has been maintained at home on digoxin 0.25 daily. He is on furosemide 20 mg tablet, glimepiride, loperamide, loratadine, losartan, melatonin, metformin, Aldactone, as well as Flomax. He is currently lying supine, in no apparent distress with allergies to penicillin. WORKUP: Included kidney ultrasound shows 11.1 and 7.5 cm kidney. His laboratory tests show serum sodium of 126, potassium 3.6, bicarbonate 29, creatinine 1.0. White count 11.7, hemoglobin 10.3. LFTs noted. CURRENT MEDICATIONS: He is on: 1. Apixaban. 2. Eliquis 2.5 mg b.i.d. 3. Atorvastatin 80 mg at bedtime. 4. Lasix 20 IV q.8, which I am going to stop. 5. Melatonin. 6. Ondansetron. 7. Sodium chloride. 8. Flomax. SOCIAL HISTORY: Does not smoke or drink. FAMILY HISTORY: Significant for diabetes. No family history of kidney disease. LABORATORY DATA: Labs today, hemoglobin 10.3. Chemistries as mentioned. Calcium is 10.1, gone up from yesterday. Serum sodium was a lot lower upon admission at 2121 hours up to 126. His urinalysis shows specific gravity 1.015, pH 5. Urine microscopy benign. Urine sodium less than 20. Urine tox screen digoxin level is 1.02. Rare testing for coronavirus and that is pending. PHYSICAL EXAMINATION: GENERAL: Awake, alert, lying supine, in no apparent distress. VITAL SIGNS: Blood pressure 105/66, pulse rate 81, afebrile, oxygen saturation 98%, and respiratory rate 18. HEAD AND NECK: Cornea clear. Oral mucosa moist. Sternotomy incision scar noted. ICD present left-sided chest. NECK: Veins are not distended. LUNGS: Bibasilar rales. HEART: 2 to 3/6 ejection systolic murmur at the left sternal border. ABDOMEN: Soft, nontender. No apparent visceromegaly. LOWER EXTREMITIES: 3+ edema, extending up to his thighs. Flank 1+ edema. IMPRESSION AND PLAN: 1. Hyponatremia, multifactorial. Has been on Aldactone at home. Agree to hold off digoxin. Has severe cardiomyopathy, ejection fraction 20%, chronically atrial flutter, congestive heart failure, hyponatremia due to urine sodium was low, so that is an appropriate response to hyponatremia. 2. Nevertheless, he may be intravascularly dry, but has significant 3rd spacing edema. I will discontinue existing Lasix. Place the patient on a regular salt diet, placed on a fluid restriction 1.2 L. We will give normal saline at 75 mL an hour for 1 L only. We will obtain uric acid, TSH. Start Lasix 60 IV q.8, 1st dose now. Discussed with RN. 3. Has atrophied left kidney. Essentially solitary functioning, right kidney, underlying chronic kidney disease. MD NEYMAR Kinsey/ANN /[id number]
[2019-10-01] MEDS: FUROSEMIDE INJ 10 MG/ML 4 ML VIAL IV SCH ×2 (18:09→21:53)
--- NOTE | 2019-10-01 20:00 | NUR ---
Received change of shift report from AM nurse. Walking rounds completed.
[2019-10-01] MEDS: ATORVASTATIN 40 MG TAB PO SCH (21:00)
[2019-10-01] MEDS: TAMSULOSIN HCL 0.4 MG CAP PO SCH (21:00)
[2019-10-01] MEDS: MELATONIN 5 MG TABLET PO SCH (21:00)
--- NOTE | 2019-10-01 22:35 | Consultation ---
DATE OF CONSULTATION: 10/01/2019 Cardiology Consultation Thank you for asking me to see Mr. Mariano again in consultation. CHIEF COMPLAINT: He was sent to the hospital after home nurse checked labs and found hyponatremia. HISTORY OF PRESENT ILLNESS: The patient has been living at home since he was discharged from rehab stay after he was hospitalized at [facility] from June 26 through for right shoulder fracture and hypoglycemia. Of note, is that his serum sodium ranged between 133 and 134 during that hospitalization, both less than the lower normal of 136 here in this hospital. The patient tells me he does eat 3 meals a day, but he is unfamiliar with his home medications. 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 He did not do coronary bypass graft surgery at that time. More recently, the patient has had coronary stenting. He has lived in the [place] area since 2000. He has chronic atrial fibrillation, mild renal insufficiency, and AICD defibrillator [employer]. RECENT HOME MEDICATIONS: Include apixaban, atorvastatin, Haldol, digoxin 0.125 mg every other day. He has used Amaryl in the past and he tells me he is using furosemide, but cannot tell me any doses or frequency. PHYSICAL EXAMINATION: GENERAL: At this time, shows elderly lethargic man who wakes and is conversant. VITALS SIGNS: Blood pressure is 103/61, pulse is 70 and irregular. HEAD, EYES, EARS, NOSE, AND THROAT: Unremarkable. Thorax, there is healed midline sternotomy and a left subclavian pacemaker site. HEART: Sounds S1, S2 are equal, but irregularly irregular. LUNGS: Have bibasilar crackles. EXTREMITIES: Show 4+ edema in both legs with some weeping and purpura. His arms have purpura as well. LABORATORY STUDIES: Showed admitting serum sodium 124, it is now 126. Initial creatinine was 1.27, now 1.0. Today's glucose is 72, hemoglobin 10.3. Chest x-ray shows cardiomegaly with mild pulmonary edema. Digoxin level 1.02. BNP was 401. EKG shows ventricular pacing. ASSESSMENT: 1. 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 His ejection fraction was calculated at 17% when he had echo here in June of this year. 2. Hyponatremia, likely nutritional, but aggravated by both congestive failure and renal issues. 3. Chronic atrial fibrillation. 4. AICD. 5. Mild renal insufficiency. 6. Diabetes. PLAN: We will check venous Doppler scan of the legs and ask for dietitian consultation to evaluate adequacy of nutrition. We will recommend a low-sodium diet for management of congestive failure in spite of the fact of him being hyponatremia. Complex management. Thank you for asking me to see him in consultation. MD STEPHANY Suggs/MODL /[id number]
[2019-10-02] VITALS (8 sets, daily range): BP systolic 91–134; BP diastolic 65–84
[2019-10-02] MEDS ORDERED: DIPHENHYDRAMINE HCL 25 MG CAP PO PRN (01:15)
[2019-10-02] MEDS: ACETAMINOPHEN 325 MG TAB PO PRN (02:16)
[2019-10-02] MEDS: FUROSEMIDE INJ 10 MG/ML 4 ML VIAL IV SCH ×3 (05:06→21:00)
--- NOTE | 2019-10-02 05:34 | NUR ---
Patient resting quitly at this time.
[2019-10-02 07:16] LABS: ALANINE AMINOTRANSFERASE 22 IU/L (0-55); ALBUMIN 2.9 g/dL (3.5-5.0); ALKALINE PHOSPHATASE 126 IU/L (40-150); ANION GAP 14.7 mmol/L (8-16); BLOOD UREA NITROGEN 34 mg/dL (7-26); BUN/CREATININE RATIO 30 (6-25); CALCIUM 9.6 mg/dL (8.4-10.2); CARBON DIOXIDE 30 mmol/L (22-29); CHLORIDE 87 mmol/L (98-107); CREATININE, SERUM 1.15 mg/dL (0.72-1.25); EST GLOMERULAR FILTRATION RATE > 60 ML/MIN (60-); GLUCOSE 77 mg/dL (74-118); POTASSIUM 3.7 mmol/L (3.5-5.1); SODIUM 128 mmol/L (136-145)
--- NOTE | 2019-10-02 07:25 | NUR ---
PATIENT OUT OF BED TO RECLINING CHAIR WATCHING TV, NO DISTRESS NOTED. REDNESS, SWELLING, AND SKIN TEARS TO ALL EXTREMITIES. BED IN LOWER POSITION, CALL LIGHT AT REACH.
[2019-10-02] MEDS: INSULIN LISPRO 100 UNIT/1 ML 3ML VIAL SQ SCH ×4 (07:30→20:24)
[2019-10-02] MEDS: METOPROLOL SUCCINATE 25 MG TAB XL PO SCH (09:00)
[2019-10-02] MEDS: APIXAB 2.5 MG TABLET PO SCH ×2 (09:08→17:33)
[2019-10-02] MEDS: BALSAM PERU/CASTOR OIL 60 GM OINT...G. TP SCH (11:00)
--- NOTE | 2019-10-02 12:07 | NUR ---
TREATMENT DONE TO LOWER EXTREMITIES ORDERED. PATIENT OUT OF TO CHAIR EATING LUNCH. AT BED SIDE, CALL LIGHT AT REACH.
--- NOTE | 2019-10-02 13:06 | NUR ---
Nephrologu Progress note -- S - chart reviewed. Events noted O - BP 94/68 mm hg, RR 18 HR 80 T 97.4 General - NAD, not in any distress Chest - bilateral rales Heart - RRR, ?? systolic murmer left 2nd ICB Abd - soft, NTND Extremities - swollen, wrapped in dressing, oozing as per patient and the nurse Neuro - AAO x 3 labs reviewed - na continues to improve with diuresis 128 meq/L on 10/01 A& P - Hyponatremia multifactorial but fluid overload seems to have played role CHF, EF 20% CKD with Lt renal atrophy and solitary functioning kidney - continue with Diuresis - will decrease dose to lasix 40 mg TID iv to avoid overcorrection and overdiuresis - patient feeling much better today
--- NOTE | 2019-10-02 15:31 | NUR ---
MD IN TO SEE PATIENT, NEW ORDER RECEIVED.
--- NOTE | 2019-10-02 19:15 | NUR ---
patient received awake, alert, lying quietly in bed. no c/o pain noted. dressings to bilateral legs dry and intact. pm assessment complete. patient instructed to call for assistance when needed.
--- NOTE | 2019-10-02 19:25 | NUR ---
BED SIDE REPORT GIVEN TO ON COMING NURSE.
[2019-10-02] MEDS: ATORVASTATIN 40 MG TAB PO SCH (20:57)
[2019-10-02] MEDS: TAMSULOSIN HCL 0.4 MG CAP PO SCH (20:57)
[2019-10-02] MEDS: MELATONIN 5 MG TABLET PO SCH (20:57)
[2019-10-03] VITALS (8 sets, daily range): BP systolic 98–120; BP diastolic 60–78
[2019-10-03] MEDS: FUROSEMIDE INJ 10 MG/ML 4 ML VIAL IV SCH ×3 (06:00→21:01)
--- NOTE | 2019-10-03 07:11 | NUR ---
PATIENT RESTING IN RECLINING CHAIR, NO DISTRESS NOTED. DRESSING INTACT TO LOWER EXTREMITIES, ELEVATED. CALL LIGHT AT REACH.
[2019-10-03] MEDS: INSULIN LISPRO 100 UNIT/1 ML 3ML VIAL SQ SCH ×4 (07:30→20:33)
[2019-10-03] MEDS: METOPROLOL SUCCINATE 25 MG TAB XL PO SCH (09:17)
[2019-10-03] MEDS: BALSAM PERU/CASTOR OIL 60 GM OINT...G. TP SCH (09:17)
[2019-10-03] MEDS: APIXAB 2.5 MG TABLET PO SCH ×2 (09:17→17:01)
[2019-10-03 10:56] LABS: BASOPHILS # (AUTO) 0.1 (0.0-0.1); BASOPHILS % 0.8 % (0.0-1.0); EOSINOPHILS # (AUTO) 1.4 (0.0-0.4); EOSINOPHILS % 12.4 % (0.0-6.0); HEMATOCRIT 32.4 % (38.2-49.6); HEMOGLOBIN 10.6 g/dL (14.0-18.0); LYMPHOCYTES # (AUTO) 0.9 (1.0-3.2); LYMPHOCYTES % 8.4 % (18.0-39.1); MEAN CORPUSCULAR HEMOGLOBIN 26.5 pg (28-32); MEAN CORPUSCULAR HGB CONC 32.7 g/dL (31-35); MONOCYTES # (AUTO) 0.8 (0.2-0.8); MONOCYTES % 7.1 % (4.4-11.3); NEUTROPHILS # (AUTO) 7.7 (2.1-6.9); NEUTROPHILS % 70.8 % (38.7-80.0); PLATELET COUNT 231 x10e3/uL (140-360); RED CELL DISTRIBUTION WIDTH 17.7 % (11.7-14.4)
--- NOTE | 2019-10-03 11:10 | NUR ---
PATIENT ASSISTED TO THE RESTROOM AND BACK TO CHAIR. ALL PERSONAL ITEMS CLOSE TO PATIENT. CALL LIGHT AT REACH.
[2019-10-03 11:12] LABS: ANION GAP 16.6 mmol/L (8-16); CREATININE, SERUM 1.26 mg/dL (0.72-1.25); MAGNESIUM 1.6 MG/DL (1.3-2.1); POTASSIUM 3.6 mmol/L (3.5-5.1)
--- NOTE | 2019-10-03 15:42 | NUR ---
DRESSING CHANGED TO LOWER EXTREMITIES ORDERED. MD IN TO SEE PATIENT. NEW ORDER RECEIVED.
--- NOTE | 2019-10-03 19:15 | NUR ---
patient received awake, alert, sitting up in recliner. no c/o pain noted. dressings to bilateral legs c,d,i. pm assessment complete. call cano placed within reach. patient instructed to call for assistance when needed.
[2019-10-03] MEDS: MELATONIN 5 MG TABLET PO SCH (20:56)
[2019-10-03] MEDS: TAMSULOSIN HCL 0.4 MG CAP PO SCH (20:56)
[2019-10-03] MEDS: ATORVASTATIN 40 MG TAB PO SCH (20:56)
[2019-10-03] MEDS: ACETAMINOPHEN 325 MG TAB PO PRN (23:36)
[2019-10-04] VITALS (8 sets, daily range): BP systolic 98–107; BP diastolic 63–85
[2019-10-04] MEDS: FUROSEMIDE INJ 10 MG/ML 4 ML VIAL IV SCH ×3 (05:51→21:29)
[2019-10-04 06:35] LABS: BASOPHILS # (AUTO) 0.1 (0.0-0.1); EOSINOPHILS # (AUTO) 1.6 (0.0-0.4); EOSINOPHILS % 14.1 % (0.0-6.0); HEMATOCRIT 32.4 % (38.2-49.6); HEMOGLOBIN 10.5 g/dL (14.0-18.0); LYMPHOCYTES # (AUTO) 1.5 (1.0-3.2); MEAN CORPUSCULAR HEMOGLOBIN 26.5 pg (28-32); MEAN CORPUSCULAR HGB CONC 32.4 g/dL (31-35); MEAN CORPUSCULAR VOLUME 81.8 fL (81-99); MONOCYTES % 8.7 % (4.4-11.3); NEUTROPHILS # (AUTO) 7.1 (2.1-6.9); NEUTROPHILS % 62.8 % (38.7-80.0); PLATELET COUNT 254 x10e3/uL (140-360); RED BLOOD COUNT 3.96 x10e6/uL (4.3-5.7); RED CELL DISTRIBUTION WIDTH 17.7 % (11.7-14.4)
[2019-10-04 06:54] LABS: ANION GAP 16.8 mmol/L (8-16); CALCIUM 9.8 mg/dL (8.4-10.2); CREATININE, SERUM 1.31 mg/dL (0.72-1.25); MAGNESIUM 1.6 MG/DL (1.3-2.1); POTASSIUM 3.8 mmol/L (3.5-5.1)
--- NOTE | 2019-10-04 07:15 | NUR ---
PATIENT IN RECLINING CHAIR WATCHING TV, NO COMPLAIN VOICED. HAS AN ORDER FOR KNEE HIGH ALDO HOSE. OFFERED, BUT PATIENT REFUSED. CALL LIGHT AT REACH.
[2019-10-04] MEDS: INSULIN LISPRO 100 UNIT/1 ML 3ML VIAL SQ SCH ×4 (07:30→21:28)
[2019-10-04] MEDS: APIXAB 2.5 MG TABLET PO SCH ×2 (09:13→17:18)
[2019-10-04] MEDS: METOPROLOL SUCCINATE 25 MG TAB XL PO SCH (09:13)
[2019-10-04] MEDS: BALSAM PERU/CASTOR OIL 60 GM OINT...G. TP SCH (10:30)
--- NOTE | 2019-10-04 11:10 | NUR ---
PATIENT IN RECLINING CHAIR TALKING TO FAMILY MEMBER VISITING. CALL LIGHT AT REACH.
--- NOTE | 2019-10-04 15:23 | NUR ---
MD IN TO SEE PATIENT, NEW ORDER RECEIVED.
--- NOTE | 2019-10-04 19:17 | Progress Note ---
DATE: 10/04/2019 CONSULTANTS: Dr. Lebron with Nephrology and Dr. Ortiz of Cardiology. CHIEF COMPLAINT: Bilateral lower extremity edema. SUBJECTIVE: The patient was seen sitting up in chair with at bedside. No shortness of breath, chest pain, fever, or chills. Reports lower extremity edema is improving some, although there is 3+ edema with multiple scabs in the bilateral upper extremities. PHYSICAL EXAMINATION: VITAL SIGNS: Temperature 97.6, pulse is 84, respirations 18, blood pressure 105/71, pulse ox is 99% on room air. GENERAL: No dyspnea. HEENT: Normocephalic, atraumatic. NECK: Supple. CARDIOVASCULAR: Regular rate and rhythm. LUNGS: Decreased breath sounds. ABDOMEN: Soft and nontender. NEUROLOGIC: Alert, awake, and oriented x3. MUSCULOSKELETAL: Bilateral lower extremity edema. SKIN: With multiple scabs in upper extremities. LABORATORY DATA: WBC 11.35, hemoglobin is 10.5, hematocrit is 32.4, platelet is 254. Sodium 129, potassium 3.8, BUN is 45, creatinine is 1.31. IMPRESSION: 1. Bilateral lower extremity edema. We will continue with IV Lasix q.i.d. per Renal. Wound care has been consulted. 2. Hyponatremia. Sodium is 129 today. We will defer to Nephrology. 3. Chronic kidney disease 3 due to diabetes. Creatinine is 1.31. Nephrology on the case. 4. Chronic atrial fibrillation. Continue Eliquis. Rate controlled. 5. Systolic congestive heart failure. We will continue with beta-blockers and hold MAYKEL inhibitor on due to chronic kidney disease. Lasix for fluid overload. 6. Debility. We will have physical therapy to evaluate and treat. 7. Benign prostatic hypertrophy. Continue Flomax. 8. GI and deep venous thrombosis prophylaxis. Continue Eliquis. PLAN: To continue current treatment with aggressive diuresis. Dictated by WALDO Starkey Bailee Merchant MD MY/MODL /[id number] Pt seen and examined on 10/04/2019. Agree with the findings and plan as documented by WALDO Padilla. MTDD
[2019-10-04] MEDS: ATORVASTATIN 40 MG TAB PO SCH (21:28)
[2019-10-04] MEDS: MELATONIN 5 MG TABLET PO SCH (21:29)
[2019-10-04] MEDS: TAMSULOSIN HCL 0.4 MG CAP PO SCH (21:29)
[2019-10-05] VITALS (8 sets, daily range): BP systolic 95–105; BP diastolic 72–86
[2019-10-05] MEDS: FUROSEMIDE INJ 10 MG/ML 4 ML VIAL IV SCH (06:25)
[2019-10-05 06:37] LABS: ANION GAP 17.6 mmol/L (8-16); CALCIUM 9.8 mg/dL (8.4-10.2); CREATININE, SERUM 1.36 mg/dL (0.72-1.25); POTASSIUM 3.6 mmol/L (3.5-5.1)
--- NOTE | 2019-10-05 07:25 | NUR ---
PATIENT IN BED RESTING WITH NO S/S OF DISTRESS. DRESSING INTACT TO LOWER EXTREMITIES. BED IN LOWER POSITION, CALL LIGHT AT REACH.
[2019-10-05] MEDS: INSULIN LISPRO 100 UNIT/1 ML 3ML VIAL SQ SCH ×4 (07:30→20:20)
[2019-10-05] MEDS: BALSAM PERU/CASTOR OIL 60 GM OINT...G. TP SCH (09:10)
[2019-10-05] MEDS: METOPROLOL SUCCINATE 25 MG TAB XL PO SCH (09:10)
[2019-10-05] MEDS: APIXAB 2.5 MG TABLET PO SCH ×2 (09:10→17:37)
--- NOTE | 2019-10-05 11:22 | NUR ---
PATIENT AMBULATING IN ROOM WITH PHYSICAL THERAPY, NO COMPLAIN VOICED.
--- NOTE | 2019-10-05 15:48 | NUR ---
MD IN TO SEE PATIENT, NO NEW ORDER RECEIVED.
[2019-10-05] MEDS: SODIUM CHLORIDE 1 GM TAB PO SCH ×2 (17:30→20:12)
[2019-10-05] MEDS: BUMETANIDE 1 MG TAB PO SCH (17:37)
--- NOTE | 2019-10-05 19:25 | NUR ---
Received change of shift report from AM nurse. Walking rounds completed.
--- NOTE | 2019-10-05 19:26 | NUR ---
Received change of shift report from AM nurse. Walking rounds completed.
[2019-10-05] MEDS: ATORVASTATIN 40 MG TAB PO SCH (20:12)
[2019-10-05] MEDS: TAMSULOSIN HCL 0.4 MG CAP PO SCH (20:12)
[2019-10-05] MEDS: MELATONIN 5 MG TABLET PO SCH (20:12)
[2019-10-05] MEDS: ACETAMINOPHEN 325 MG TAB PO PRN (20:13)
[2019-10-06] VITALS (7 sets, daily range): BP systolic 95–104; BP diastolic 69–89
--- NOTE | 2019-10-06 00:29 | NUR ---
Patient resting in chair. Refused to go to bed. Requested tylenol for pain and itching. Given as ordered by MD. Ointment applied to patient back. Continue monitor.
[2019-10-06 06:04] LABS: BASOPHILS # (AUTO) 0.1 (0.0-0.1); BASOPHILS % 0.9 % (0.0-1.0); EOSINOPHILS # (AUTO) 1.3 (0.0-0.4); HEMATOCRIT 33.4 % (38.2-49.6); HEMOGLOBIN 10.7 g/dL (14.0-18.0); LYMPHOCYTES # (AUTO) 1.4 (1.0-3.2); LYMPHOCYTES % 11.7 % (18.0-39.1); MEAN CORPUSCULAR HEMOGLOBIN 26.4 pg (28-32); MEAN CORPUSCULAR VOLUME 82.5 fL (81-99); MONOCYTES # (AUTO) 1.2 (0.2-0.8); NEUTROPHILS % 65.8 % (38.7-80.0); PLATELET COUNT 250 x10e3/uL (140-360); RED BLOOD COUNT 4.05 x10e6/uL (4.3-5.7); RED CELL DISTRIBUTION WIDTH 18.2 % (11.7-14.4)
[2019-10-06 06:23] LABS: ANION GAP 19.8 mmol/L (8-16); CALCIUM 9.7 mg/dL (8.4-10.2); CREATININE, SERUM 1.58 mg/dL (0.72-1.25); MAGNESIUM 1.8 MG/DL (1.3-2.1); POTASSIUM 3.8 mmol/L (3.5-5.1)
--- NOTE | 2019-10-06 06:34 | NUR ---
Lab called to report patient BS at 57. Patient only c/o of being cold. Patient given orange juice with sugar. Patient completed mixture. will repeat BS. Bs up to 77. Continue monitor.
--- NOTE | 2019-10-06 07:00 | NUR ---
Bedside shift report, patient sitting on recliner with eyes closed. Respiration even and unlabored without SOB. Call light in reach
[2019-10-06] MEDS: INSULIN LISPRO 100 UNIT/1 ML 3ML VIAL SQ SCH ×4 (07:30→21:00)
[2019-10-06] MEDS: SODIUM CHLORIDE 1 GM TAB PO SCH ×3 (08:52→21:00)
[2019-10-06] MEDS: BUMETANIDE 1 MG TAB PO SCH ×2 (08:52→17:08)
[2019-10-06] MEDS: APIXAB 2.5 MG TABLET PO SCH ×2 (08:52→17:08)
[2019-10-06] MEDS: METOPROLOL SUCCINATE 25 MG TAB XL PO SCH (08:53)
--- NOTE | 2019-10-06 10:26 | NUR ---
Pt. expressed no spiritual or emotional concerns at this time. Pt's at bedside. Medical Laboratory Assistant provided hospitality and information on how to reach finance specialist, if needed. No need to follow at this time. DEAN ROWE Medical Laboratory Assistant Spiritual Care Department O: [phone]
--- NOTE | 2019-10-06 11:02 | NUR ---
CM MET W THE PT'S SPOUSE. STATES THE PT IS ON SERVICE W [facility]. STATES HE RECEIVED SN AND PT. MARYAM RN/ BEDSIDE RN AWARE. DISCUSSED THE PT WILL PROBABLY NEED HIS LEGS WRAPPED AT HOME. AGREED TO HAVE ORDER ADDED TO RESUME HH ORDER. IMM LETTER EXPLAINED TO PT'S . SHE VERBALIZED UNDERSTANDING. IMM LETTER SIGNED. COPY TO PT/SPOUSE AND COPY TO CHART.
--- NOTE | 2019-10-06 13:00 | NUR ---
WOUND CARE SCREENING CONSULT FOR 79 YO MALE. HX OF PRESENT EDEMA SAMSON LOWER LEGS; HYPONATREMIA PAULO 16 ON MODERATE PUP STATUS AND INTERVENTIONS SURFACE: REGULAR VISCO MATTRESS. PATIENT INITALLY PRESENTED WITH: 1) STAGE II PRESSURE ULCER MEASURIN.8 CM X 0.5 CM X 0.1 CM; RED BLANCHABLE PERIWOUND. MINIMAL SEROUS DRAINAGE. 2) MULTIPLE HEALING SCABS TO BILATERAL UPPER EXTREMITIES DUE TO PT SCRACHING EXTREMITIES. 3) PITTING EDEMA PRESENT TO BILATERAL LOWER EXTREMITIES WITH MULTIPLE HEALING SCABS DUE TO PT SCRATCHING CURRENT TREATMENTS IN PLACE AND WOUND AREAS STABLE Addendum: 10/06/19 at 1302 by Tray Edwards RN Amended: Links added.
[2019-10-06] MEDS: BALSAM PERU/CASTOR OIL 60 GM OINT...G. TP SCH (13:04)
[2019-10-06] MEDS ORDERED: MAGNESIUM SULFATE 2GM/50ML 50 ML IV SCH (14:30)
--- NOTE | 2019-10-06 14:30 | NUR ---
CALL TO DR. STOKES. REQUESTED HOME HEALTH ORDERS W SPECIFIC ORDERS FOR THE PT'S LEG WRAPS W THE FREQUENCY. DR. STOKES STATES THE PT WILL NOT DC TODAY. NO FURTHER INSTRUCTION GIVEN.
--- NOTE | 2019-10-06 15:04 | Progress Note ---
DATE: 10/06/2019 CONSULTANTS: 1. Dr. Lebron with Nephrology. 2. Dr. Ortiz with Cardiology. CHIEF COMPLAINT: Bilateral lower extremity edema due to fluid overload and hyponatremia. SUBJECTIVE: The patient is sitting up in a chair, stating that he is ready to go home. He is still with significant bilateral lower extremity edema. Dressing intact. Denies any chest pain, shortness of breath, fever, chills. PHYSICAL EXAMINATION: VITAL SIGNS: Temperature 97.5, pulse is 86, respirations 19, blood pressure 98/85, pulse ox is 98% on room air. GENERAL: No acute distress. HEENT: Normocephalic, atraumatic. NECK: Supple. CARDIOVASCULAR: Regular rate and rhythm. LUNGS: With decreased breath sounds. ABDOMEN: Soft and nontender. NEUROLOGIC: Alert, awake, oriented x3. MUSCULOSKELETAL: Moves all extremities, +3 edema in the lower extremities. SKIN: With multiple scabs on the bilateral upper extremities. LABORATORY DATA: WBC 12.15, hemoglobin 10.7, hematocrit 33.4, and platelets 250. Sodium 131, potassium 3.8, CO2 of 26, creatinine is 1.58. BUN is 55, glucose 57, magnesium 1.8. IMPRESSION: 1. Bilateral lower extremity edema. Lasix has been changed to Bumex 2 mg b.i.d. per Nephrology. Continue wound care of the bilateral lower extremities. 2. Hyponatremia. Sodium is improving, today 131. Continue sodium tablet per Nephrology. 3. Chronic kidney disease 3 due to diabetes. Creatinine is worsening at 1.58. Nephrology is on the case. 4. Chronic atrial fibrillation. Continue Eliquis. Rate controlled. 5. Systolic congestive heart failure. Continue low dose of beta-blockers. Blood pressure is on the low side. Cardiology on the case. 6. Debility. Continue with physical therapy. 7. Benign prostatic hyperplasia. Continue Flomax. 8. Multiple scabs on upper extremities. Monitor. 9. High cholesterol. Continue statin. 10. Deep venous thrombosis prophylaxis. He is on Eliquis. PLAN: To continue current management. Repeat BMP in the morning. Dictated by WALDO Starkey Bailee Merchant MD MY/MODL /[id number] Pt seen and examined. Agree with the findings and plan as documented by WALDO Padilla. ADEBAYO
--- NOTE | 2019-10-06 17:08 | NUR ---
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 Ht: 70 in Wt:170 lbs (per pt) BMI: 24.4 kg/m2 IBW:[address] Assessment: 10/05: Follow up. RD received consult for diet education. Diet education was provided on 09/30. Spoke to pt and family member and answered their questions about the low sodium diet and that pt is also on a 1.2 L fluid restriction. Pt stated he has been eating most of his meals. No N/V/D/C noted. Will continue to monitor (10/01/19) Chart reviewed. Labs and meds reviewed. Pt is an 79 year old male admitted with edema of both lower legs and hyponatremia. Spoke to pt and family member. Pt and family member report pt has been eating about 50% of his meals prior to admission for >1 month. At time of visit, pt stated his appetite is getting better and it is noted that pt consumed 75% of his meals today. Pt stated his weight has been stable at 170 lbs. Pt currently has a weight of 117 lbs in chart, but per observation this does not appear accurate. No N/V/D/C or chewing/swallowing issues. Will continue to monitor Current Diet: cardiac. Pt is also on a 1.2 L fluid restriction per RN Malnutrition Evaluation (10/01/19) The patient does not meet criteria for a specified degree of malnutrition at this time. Will re-evaluate at follow-up as appropriate. Diet Education Needs Assessment: RD provided pt with diet education materials regarding following a low sodium diet on 09/30. RD answered pt and family members' questions today regarding the low sodium diet and that pt is on a 1.2 L fluid restriction. Nutrition Care Level: low Signed: Melody Walker, RD, LD
--- NOTE | 2019-10-06 19:30 | NUR ---
patient received awake, alert, sitting in recliner. no c/o pain noted. dressings to ble c,d,i. pm assessment complete. call cano placed within reach. patient instructed to call for assistance when needed.
[2019-10-06] MEDS: TAMSULOSIN HCL 0.4 MG CAP PO SCH (21:00)
[2019-10-06] MEDS: MELATONIN 5 MG TABLET PO SCH (21:00)
[2019-10-06] MEDS: ATORVASTATIN 40 MG TAB PO SCH (21:00)
[2019-10-07] VITALS: BP 100/71
[2019-10-07 04:00] VITALS: BP 99/79
--- NOTE | 2019-10-07 04:00 | NUR ---
iv to right ac out. new iv #[id number] placed to right forearm x 1 stick.
[2019-10-07 06:56] LABS: ANION GAP 22.4 mmol/L (8-16); CALCIUM 9.5 mg/dL (8.4-10.2); CREATININE, SERUM 1.69 mg/dL (0.72-1.25); POTASSIUM 4.4 mmol/L (3.5-5.1)
--- NOTE | 2019-10-07 06:57 | NUR ---
Received bedside shift report with patient lying in bed with eyes open. Respiration even and unlabored without SOB. Call light in reach.
[2019-10-07] MEDS: INSULIN LISPRO 100 UNIT/1 ML 3ML VIAL SQ SCH ×2 (07:30→12:31)
[2019-10-07 07:47] VITALS: BP 107/75
[2019-10-07] MEDS: BUMETANIDE 1 MG TAB PO SCH (08:41)
[2019-10-07] MEDS: METOPROLOL SUCCINATE 25 MG TAB XL PO SCH (08:41)
[2019-10-07] MEDS: BALSAM PERU/CASTOR OIL 60 GM OINT...G. TP SCH (08:41)
[2019-10-07] MEDS: SODIUM CHLORIDE 1 GM TAB PO SCH ×2 (08:43→15:00)
[2019-10-07 09:43] VITALS: BP 107/75
[2019-10-07 11:37] VITALS: BP 97/74
--- NOTE | 2019-10-07 13:29 | NUR ---
Received home health order. Pt currently on service with [facility], choice letter already on chart. CM called [facility] and verified pt is currently on service. Home health order and clinicals faxed to [phone] / . Informed of anticipated dc for today.
[2019-10-07] MEDS ORDERED: BUMETANIDE1 MG PO (13:47)
[2019-10-07] MEDS ORDERED: SODIUM CHLORIDE1 GM PO (13:47)
--- NOTE | 2019-10-07 15:44 | NUR ---
Patient is to discharge to home with home health. Discharge education given. Home prescription medication given. Verbalized understanding. PIV to right FA discontinued, catheter intact, no bleeding noted. Transported via wheelchair to private vehicle with all personal belongings taken.
--- NOTE | 2019-10-08 06:26 | Discharge Summary ---
PCP: Dr. Venegas at [facility]. FINAL DISCHARGE DIAGNOSES: 1. Bilateral lower extremity edema. 2. Hyponatremia. 3. Chronic kidney disease, stage 3. 4. Chronic atrial fibrillation. 5. Systolic congestive heart failure. 6. Benign prostatic hypertrophy. 7. High cholesterol. CONSULTANTS: 1. Dr. Lebron with Nephrology. 2. Dr. Ortiz with Cardiology. PROCEDURES: None. HISTORY: Per HPI. HOSPITAL COURSE: This is an 79-year-old male, who presented with bilateral lower extremity edema leaking and scabs to his upper extremities due to fluid overload and hyponatremia. Nephrology was consulted and he was started on aggressive diuresis with Lasix. Then changed to Bumex for further diuresis. Swelling continues to improve. He was also noted to have hyponatremia, he was started on sodium tablets per Nephrology. He was restarted on his cardiac medications for his systolic congestive heart failure and atrial fibrillation, with beta-blockers and Eliquis. Wound care was consulted for wrapping the lower extremities to help with leaking. He remains stable, although there was a slight increase in his creatinine. He remains afebrile, vital signs stable, he is cleared to discharge home today with home health for wound care and physical therapy and to follow up with Dr. Lebron and PCP in 1 to 2 weeks. PHYSICAL EXAMINATION: VITAL SIGNS: Temperature 97.3, pulse is 77, respirations 16, blood pressure 97/74, and pulse ox is 100% on room air. GENERAL: Fatigue. HEENT: Normocephalic. Atraumatic. LUNGS: Decreased breath sounds. CARDIOVASCULAR: Irregular, but controlled rate. GI: Soft and nontender. NEUROLOGIC: Alert, awake, and oriented x3. MUSCULOSKELETAL: +2 to +3 edema in the lower extremities. SKIN: Multiple scabs on the upper extremities bilaterally. CONDITION AT DISCHARGE: Improved and stable. DISCHARGE MEDICATIONS: Please see medication reconciliation list. FOLLOWUP: With Dr. Lebron next week and PCP and [facility]enter [facility] in 1 to 2 weeks. TIME SPENT: Total discharge time is 35 minutes. Dictated by WALDO Starkey Kadyching Obdulio Merchant MD MY/MODL /[id number] cc: Max Venegas MD [facility] Pt seen and examined on 10/07/19. Agree with the findings and plan as documented by WALDO Padilla. JERMAINED
== END 2019-10-07 15:44 | disposition home health service (06) | DRG 641 ==
LOC: ER 19:13 → ERHOLD 21:05 → MED/SURG3 09-30 20:38
PROVIDERS: ADMIT Internal Medicine; ATTEND Internal Medicine
DX: E87.1 Hypo-osmolality and hyponatremia (principal); I48.20 Chronic atrial fibrillation, unspecified; I13.0 Hypertensive heart and chronic kidney disease with heart failure and stage 1 through stage 4 chronic kidney disease, or unspecified chronic kidney disease; I50.22 Chronic systolic (congestive) heart failure; N17.9 Acute kidney failure, unspecified; E11.22 Type 2 diabetes mellitus with diabetic chronic kidney disease; N18.3 Chronic kidney disease, stage 3 (moderate); Z79.01 Long term (current) use of anticoagulants; N40.0 Benign prostatic hyperplasia without lower urinary tract symptoms; Z83.3 Family history of diabetes mellitus; N26.1 Atrophy of kidney (terminal); Z95.810 Presence of automatic (implantable) cardiac defibrillator; L89.892 Pressure ulcer of other site, stage 2; Z79.84 Long term (current) use of oral hypoglycemic drugs
CPT/HCPCS: 36415; 71045; 76770; 80048; 80053; 80162; 81001; 82570; 82948; 83735; 83880; 84300; 84443; 84550; 85025; 87635; 93005; 93970; 97139; 99251; 99284; J1940; J3475; J7030